=== PATIENT | female | born 1975 | race Caucasian/White ===

== ENCOUNTER → 2016-10-26 | Outpatient (REF) | payer OTHER | LOC: M LAB REF 09:36 | PROVIDERS: ATTEND Physician Assistant | DX: J02.9 Acute pharyngitis, unspecified (principal) ==

== ENCOUNTER → 2016-12-24 | Outpatient (CLI) | payer OTHER ==
--- NOTE | 2016-12-24 19:20 | REP ---
Pelvic ultrasound including transabdominal and endovaginal ultrasound assessment. The bladder is adequately distended. The uterus is anteverted and normal size measuring 9.0 x 4.3 x 5.0 cm. There is a 5.4 cm fibroid in the right lateral posterior myometrium. The fibroid encroaches both the subserosal and submucosal zones. The endometrium is not thickened measuring up to 6 mm. There is an IUD within the endometrial canal. There is a right ovarian 1.6 cm follicle. Including the follicle the right ovary is normal size measuring 2.7 x 1.6 x 3.2 cm. There is no left ovarian follicle or mass. The left ovary is normal size measuring 2.80 1.9 x 1.6 cm. Impression: The uterine fibroid as described. There is an IUD within the endometrial canal. Otherwise, negative pelvic ultrasound. Signed by Dave Phillips MD 12/24/2016 07:12 P
== END ==
LOC: M RAD 17:21
PROVIDERS: ATTEND Nurse Practitioner Family
DX: Z30.431 Encounter for routine checking of intrauterine contraceptive device (principal)

== ENCOUNTER → 2017-02-05 | Day surgery (SDC) | payer OTHER ==
[~2017-02-05] VITALS: Ht 162.6 cm; Wt 74.8 kg
[~2017-02-05] MED LIST: ACETAMINOPHEN 500 MG TAB As Ordered ONE; ACETAMINOPHEN 500 MG TAB PO ONE; ESCI10TA2 PO; LIDOCAINE 1% SDV INJ 30 ML VIAL As Ordered ONE; LIDOCAINE 2% INJ 100 MG/5 ML SDV (FOR ANES.) As Ordered ONE; LR 1,000 ML IV ONE; LR 1,000 ML IV SCH; METF-415 PO; MIDAZOLAM INJ 2 MG/2 ML VIAL (J2250) As Ordered ONE; NS 1,000 ML IV ONE; ONDANSETRON 4MG/2ML VIAL (J2405) IV PRN; PHEN-239 PO; PROPOFOL 200 MG/20 ML VIAL As Ordered ONE; VALT1TAB PO; ZYRT10CA PO; fentaNYL 100 MCG/2 ML INJECTION (J3010) As Ordered ONE; fentaNYL 100 MCG/2 ML INJECTION (J3010) IV PRN
[2017-02-05 10:33] LABS: MEAN CORPUSCULAR HEMOGLOBIN 29.9 pg (27.0-33.0); MEAN CORPUSCULAR HGB CONC 32.6 g/dl (32.0-36.5); MEAN CORPUSCULAR VOLUME 91.8 fl (80.0-96.0); RED CELL DISTRIBUTION WIDTH 13.3 % (11.5-14.5)
[2017-02-05 10:37] LABS: CONTROL LINE UCG INT CTR LINE PRESENT
[2017-02-05 13:15] VITALS: BP 136/82
--- NOTE | 2017-02-05 19:13 | RO ---
DATE OF PROCEDURE: 02/05/2017 PREPROCEDURE DIAGNOSIS: Retained intrauterine device (IUD). POSTPROCEDURE DIAGNOSIS: Retained intrauterine device (IUD). PROCEDURE: Hysteroscopy, dilation and curettage (D and C), removal of intrauterine device. SURGEON: Dr. Rommel Garcia DISASTER RECOVERY CONSULTANT: ANESTHESIA: Local sedation. ESTIMATED BLOOD LOSS: Minimal. FINDINGS: Normal appearing endometrial cavity with normally positioned intrauterine device. DESCRIPTION OF PROCEDURE: The patient was taken to the operating room where intravenous (IV) sedation was given. She was prepped and draped in a sterile fashion in the dorsal lithotomy position. A speculum was placed. The anterior lip of the cervix was grasped with a tenaculum. The cervix was injected circumferentially with 20 mL of 1% lidocaine. The cervix was dilated with tapered dilators, the hysteroscope using normal saline as a distention medium was inserted through the internal os. Visualization of the endometrial cavity revealed the findings noted above. Hysteroscopic grasping instrument was placed through the operative port of the hysteroscope and the string of the IUD was grasped. The hysteroscope with IUD were removed as one. The IUD came out intact. Sharp curettage was performed and endometrial sampling was sent for pathology. All instruments were removed. Sponge and instrument counts were correct. The patient went to the recovery room in stable condition.
== END ==
LOC: M SDC 09:54
PROVIDERS: ATTEND Specialist
DX: T83.89XA Other specified complication of genitourinary prosthetic devices, implants and grafts, initial encounter (principal); Y83.1 Surgical operation with implant of artificial internal device as the cause of abnormal reaction of the patient, or of later complication, without mention of misadventure at the time of the procedure; D25.9 Leiomyoma of uterus, unspecified; F41.9 Anxiety disorder, unspecified; F32.9 Major depressive disorder, single episode, unspecified; E28.2 Polycystic ovarian syndrome; J30.2 Other seasonal allergic rhinitis; R06.83 Snoring; Z79.899 Other long term (current) drug therapy; Z79.84 Long term (current) use of oral hypoglycemic drugs
CPT/HCPCS: 36415; 58301; 58558; 84703; 85027; 88305; J2250; J3010

== ENCOUNTER → 2017-11-18 | Outpatient (REF) | payer OTHER ==
[2017-11-18 13:51] LABS: FOLLICLE STIMULATING HORMONE 6.8 mIU/mL
[2017-11-18 13:52] LABS: LUTEINIZING HORMONE 12.3 mIU/mL
[2017-11-18 13:55] LABS: ALBUMIN/GLOBULIN RATIO 1.18 (1.00-1.93); ALKALINE PHOSPHATASE 56 U/L (45-117); ALT/SGPT 11 U/L (12-78); ANION GAP 5 MEQ/L (8-16); AST/SGOT 12 U/L (7-37); BILIRUBIN,TOTAL 0.3 MG/DL (0.2-1.0); BLOOD UREA NITROGEN 13 MG/DL (7-18); CALCIUM LEVEL 8.8 MG/DL (8.5-10.1); CARBON DIOXIDE LEVEL 30 MEQ/L (21-32); CHLORIDE LEVEL 104 MEQ/L (98-107); FREE T4 1.34 NG/DL (0.76-1.46); GLOMERULAR FILTRATION RATE > 60.0 (>58); GLUCOSE, FASTING 88 MG/DL (70-100); POTASSIUM SERUM 4.6 MEQ/L (3.5-5.1); SODIUM LEVEL 139 MEQ/L (136-145); TOTAL PROTEIN 7.4 GM/DL (6.4-8.2)
[2017-11-18 14:08] LABS: ESTIMATED AVERAGE GLUCOSE 103 MG/DL (60-110); HEMOGLOBIN A1c 5.2 %
[2017-11-20 00:07] LABS: TESTOSTERONE FREE (DIRECT) 1.1 pg/mL (0.0-4.2)
== END ==
LOC: M LABDRWAD 13:22
DX: E28.2 Polycystic ovarian syndrome (principal)

== ENCOUNTER → 2017-12-21 | Outpatient (REF) | payer OTHER | LOC: M LABDRWAD 12:24 | DX: R32 Unspecified urinary incontinence (principal) ==

== ENCOUNTER → 2018-01-19 | Outpatient (REF) | payer OTHER | LOC: M LAB REF 12:22 | DX: C44.519 Basal cell carcinoma of skin of other part of trunk (principal) | CPT/HCPCS: 88305 ==

== ENCOUNTER → 2019-01-11 | Outpatient (REF) | payer OTHER ==
[~2019-01-11] MED LIST changes: -ACETAMINOPHEN 500 MG TAB As Ordered ONE; -ACETAMINOPHEN 500 MG TAB PO ONE; -LIDOCAINE 1% SDV INJ 30 ML VIAL As Ordered ONE; -LIDOCAINE 2% INJ 100 MG/5 ML SDV (FOR ANES.) As Ordered ONE; -LR 1,000 ML IV ONE; -LR 1,000 ML IV SCH; -MIDAZOLAM INJ 2 MG/2 ML VIAL (J2250) As Ordered ONE; -NS 1,000 ML IV ONE; -ONDANSETRON 4MG/2ML VIAL (J2405) IV PRN; -PROPOFOL 200 MG/20 ML VIAL As Ordered ONE; -fentaNYL 100 MCG/2 ML INJECTION (J3010) As Ordered ONE; -fentaNYL 100 MCG/2 ML INJECTION (J3010) IV PRN
[2019-01-11 12:59] LABS: BASO # 0.1 10^3/uL (0.0-0.2); BASO % 0.9 % (0.0-1.0); EOS # 0.2 10^3/uL (0.0-0.50); EOS % 3.1 % (0.0-3.0); HEMATOCRIT 41.9 % (36.0-47.0); HEMOGLOBIN 13.6 g/dl (12.0-15.5); LYMPH # 1.9 10^3/uL (1.5-4.5); MEAN CORPUSCULAR HEMOGLOBIN 30.4 pg (27.0-33.0); MEAN CORPUSCULAR HGB CONC 32.5 g/dl (32.0-36.5); MEAN CORPUSCULAR VOLUME 93.5 fl (80.0-96.0); MONO # 0.5 10^3/uL (0.0-0.8); MONO % 6.7 % (0.0-5.0); NEUTROPHILS % 60.2 % (36.0-66.0); PLATELET COUNT, AUTOMATED 291 10^3/uL (150-450); RED BLOOD COUNT 4.48 10^6/uL (4.00-5.40); WHITE BLOOD COUNT 6.7 10^3/uL (4.0-10.0)
[2019-01-11 13:20] LABS: ALBUMIN 3.5 GM/DL (3.2-5.2); ALT/SGPT 12 U/L (12-78); BILIRUBIN,TOTAL 0.5 MG/DL (0.2-1.0); BLOOD UREA NITROGEN 16 MG/DL (7-18); CALCIUM LEVEL 8.8 MG/DL (8.5-10.1); CARBON DIOXIDE LEVEL 28 MEQ/L (21-32); CHLORIDE LEVEL 105 MEQ/L (98-107); CHOLESTEROL LEVEL 298 MG/DL (<200); CREATININE FOR GFR 0.82 MG/DL (0.55-1.30); FREE T4 1.58 NG/DL (0.76-1.46); GLOMERULAR FILTRATION RATE > 60.0 (>58); GLUCOSE, FASTING 89 MG/DL (70-100); HDL CHOLESTEROL 83 MG/DL (>40); LDL CHOLESTEROL 184 MG/DL (<100); NON-HDL-C 215 MG/DL; POTASSIUM SERUM 4.6 MEQ/L (3.5-5.1); SODIUM LEVEL 140 MEQ/L (136-145); TOTAL PROTEIN 7.6 GM/DL (6.4-8.2); TRIGLYCERIDES LEVEL 157 MG/DL (<150)
== END ==
LOC: M LABDRWAD 12:05
PROVIDERS: ATTEND Family Medicine
DX: Z13.220 Encounter for screening for lipoid disorders (principal); Z13.29 Encounter for screening for other suspected endocrine disorder; Z13.0 Encounter for screening for diseases of the blood and blood-forming organs and certain disorders involving the immune mechanism

== ENCOUNTER → 2020-03-14 | Outpatient (CLI) | payer OTHER ==
--- NOTE | 2020-03-14 13:03 | REPPI ---
REASON: Atraumatic pain. PRIORS: None. FINDINGS: The joint spaces are symmetric and relatively well maintained. There is no evidence of acute fracture or destructive osseous lesion. IMPRESSION: Negative. There is a small plantar calcaneal heel spur. Electronically Signed by Nhan Stein DO 03/14/2020 04:26 P
[2020-03-14 14:25] LABS: ALBUMIN 3.7 GM/DL (3.2-5.2); ALT/SGPT 15 U/L (12-78); BILIRUBIN,TOTAL 0.4 MG/DL (0.2-1.0); BLOOD UREA NITROGEN 8 MG/DL (7-18); CALCIUM LEVEL 8.9 MG/DL (8.5-10.1); CARBON DIOXIDE LEVEL 28 MEQ/L (21-32); CHLORIDE LEVEL 109 MEQ/L (98-107); CREATININE FOR GFR 0.75 MG/DL (0.55-1.30); GLOMERULAR FILTRATION RATE > 60.0 (>58); GLUCOSE, FASTING 87 MG/DL (70-100); POTASSIUM SERUM 4.5 MEQ/L (3.5-5.1); SODIUM LEVEL 143 MEQ/L (136-145); TOTAL PROTEIN 7.2 GM/DL (6.4-8.2)
[2020-03-14 14:40] LABS: HEMOGLOBIN A1c 4.9 %
== END ==
LOC: M PLALAB 09:36
PROVIDERS: ATTEND Family Medicine
DX: E28.2 Polycystic ovarian syndrome (principal); M77.32 Calcaneal spur, left foot

== ENCOUNTER → 2020-12-12 | Outpatient (REF) | payer OTHER ==
[~2020-12-12] MED LIST changes: +ESCI10TA16 PO; -ESCI10TA2 PO
[2020-12-12 12:47] LABS: BASO # 0.1 10^3/uL (0.0-0.2); BASO % 1.2 % (0.0-1.0); EOS # 0.2 10^3/uL (0.0-0.5); EOS % 3.7 % (0.0-3.0); HEMATOCRIT 44.1 % (36.0-47.0); HEMOGLOBIN 14.3 g/dl (12.0-15.5); LYMPH # 2.2 10^3/uL (1.5-5.0); LYMPH % 37.4 % (24.0-44.0); MEAN CORPUSCULAR HEMOGLOBIN 30.6 pg (27.0-33.0); MEAN CORPUSCULAR HGB CONC 32.4 g/dl (32.0-36.5); MEAN CORPUSCULAR VOLUME 94.2 fl (80.0-96.0); MONO # 0.5 10^3/uL (0.0-0.8); NEUTROPHILS % 49.5 % (36.0-66.0); PLATELET COUNT, AUTOMATED 298 10^3/uL (150-450); RED BLOOD COUNT 4.68 10^6/uL (4.00-5.40)
[2020-12-12 13:07] LABS: HEMOGLOBIN A1c 5.1 %
[2020-12-12 13:22] LABS: ALBUMIN 3.9 GM/DL (3.2-5.2); ALT/SGPT 10 U/L (12-78); BILIRUBIN,TOTAL 0.3 MG/DL (0.2-1.0); BLOOD UREA NITROGEN 15 MG/DL (7-18); CALCIUM LEVEL 9.4 MG/DL (8.5-10.1); CARBON DIOXIDE LEVEL 30 MEQ/L (21-32); CHLORIDE LEVEL 108 MEQ/L (98-107); CHOLESTEROL LEVEL 291 MG/DL (<200); CHOLESTEROL RISK RATIO 4.409 (<5); CREATININE FOR GFR 0.64 MG/DL (0.55-1.30); FREE T4 1.34 NG/DL (0.76-1.46); GLOMERULAR FILTRATION RATE > 60.0 (>58); GLUCOSE, FASTING 89 MG/DL (70-100); HDL CHOLESTEROL 66 MG/DL (>40); LDL CHOLESTEROL 201 MG/DL (<100); NON-HDL-C 225 MG/DL; POTASSIUM SERUM 4.7 MEQ/L (3.5-5.1); SODIUM LEVEL 142 MEQ/L (136-145); TOTAL PROTEIN 7.3 GM/DL (6.4-8.2); TRIGLYCERIDES LEVEL 120 MG/DL (<150)
== END ==
LOC: M LABDRWAD 12:22
PROVIDERS: ATTEND Family Medicine
DX: E78.2 Mixed hyperlipidemia (principal); E28.2 Polycystic ovarian syndrome; Z13.29 Encounter for screening for other suspected endocrine disorder; Z13.0 Encounter for screening for diseases of the blood and blood-forming organs and certain disorders involving the immune mechanism

== ENCOUNTER → 2021-03-14 | Outpatient (REF) | payer OTHER ==
[2021-03-14 13:45] LABS: BLOOD UREA NITROGEN 10 MG/DL (7-18); CALCIUM LEVEL 8.9 MG/DL (8.5-10.1); CARBON DIOXIDE LEVEL 29 MEQ/L (21-32); CHLORIDE LEVEL 104 MEQ/L (98-107); CREATININE FOR GFR 0.67 MG/DL (0.55-1.30); GLOMERULAR FILTRATION RATE > 60.0 (>58); GLUCOSE, FASTING 89 MG/DL (70-100); POTASSIUM SERUM 4.2 MEQ/L (3.5-5.1); SODIUM LEVEL 139 MEQ/L (136-145)
== END ==
LOC: M LABDRWAD 12:27
PROVIDERS: ATTEND Ophthalmology
DX: D23.10 Other benign neoplasm of skin of unspecified eyelid, including canthus (principal)

== ENCOUNTER 2021-08-28 15:56 | Emergency (ER) | payer OTHER ==
[~2021-08-28] VITALS: Ht 162.6 cm; Wt 77.1 kg
--- OUTSIDE RECORDS SUMMARY | 2021-08-28 16:06 | CCD | Continuity of Care Document ---
Author Author Valeria LOPEZ SERVICE WORKER Organization Unknown Address [address] [place] [address] [place] [address] Phone [phone] Care Team Providers Care Electrical Maintenance Technician Name Role Phone Rosmery Boggs DO AUTM [employer] AUTM [phone] Problems Description No Information Available Social History Type Date Description Comments Sex Unknown ETOH Use Drinks Alcoholic Beverages Occas ionally Tobacco Use Start: Unknown Patient has never smoked Tobacco Use Start: Unknown The Patient Has Never Vaped Allergies and adverse reactions Description No Known Drug Allergies Medications Active Medications SIG Qnty Indications Ordering Provide r Date Cefdinir 300mg Capsules 1 tab by mouth twice a day for 10 days 20caps J06.9 Garret Barrera JR., M.D. 08/06/2021 Metformin HCL 1000mg Tablets out x 1-2 weeks 3 every day Unknown Wellbutrin SR 150mg Tablets ER 12H R 1 by mouth every am F41.1 Unknown Valtrex 1gm Tablets 1 tab by mouth three times a day for 7 days Unknown 0 Vyvanse Unknown Flonase Allergy Relief Unknown Montelukast Sodium Powder Unknown Albuterol Fha 90mcg/Act Aerosol Unknown Immunizations Description No Information Available Vital Signs Date Vital Result Comment 08/06/2021 4:40pm BP Systolic 134 mmHg BP Diastolic 82 mmHg Heart Rate 87 /min Respiratory Rate 18 /min O2 % BldC Oximetry 98 % Body Temperature 98.6 F Weight 167.00 lb Height 64 inches 5'4" BMI (Body Mass Index) 28.7 kg/m2 Pain Level 5 06/05/2019 2:33pm BP Systolic 130 mmHg BP Diastolic 82 mmHg Heart Rate 106 /min Respiratory Rate 18 /min O2 % BldC Oximetry 95 % Body Temperature 99.0 F Weight 170.00 lb Height 64 inches 5'4" BMI (Body Mass Index) 29.2 kg/m2 Pain Level 6 Results Description No Information Available Procedures Date Code Description Status 08/06/2021 06595 Office/Outpatient Established Lo w MDM 20-29 Min Completed Medical Devices Description No Information Available Encounters Type Date Location Provider Dx Diagnosis Office Visit 08/06/2021 4:30p Main Office Lisset Lopez NP J06. 9 Acute upper respiratory infection, unspecified Z20.828 Contact w and exposure to ot h viral communicable diseases Assessments Date Code Description Provider 08/06/2021 J06.9 Acute upper respiratory infectio n, unspecified Lisset Lopez NP 08/06/2021 Z20.828 Contact with and (carias spected) exposure to other viral communicable diseases Lisset Lopez NP 06/09/2021 Z20.828 Contact with and (carias spected) exposure to other viral communicable diseases ANGELA Art Plan of Treatment No Information Available Functional Status Description No Information Available Mental Status Description No Information Available Referrals Description No Information Available
--- OUTSIDE RECORDS SUMMARY | 2021-08-28 16:06 | CCD ---
Author Author [employer] Organization [employer] Address Unknown Phone Unavailable Care Team Providers Care Stock Or Delivery Clerk Name Role Phone Bobby Griffin Unavailable PROBLEMS Type Condition ICD9-CM Code [id number] Code Onset Dates Condition S tatus W/U Status Risk SNOMED Code Notes Problem Basal cell carcinoma of lower lip C44.01 Active confirmed [id number] ALLERGIES No Known Allergies ENCOUNTERS from 1975 to 2021-08-22 Encounter Location Date Provider Diagnosis [facility] Dermatology [address] [facility] [phone] [place] [address] Aug, Bobby Griffin Basal cell carcinoma of lowe r lip C44.01 ; Diffuse photodamage of skin L57.8 and Cough R05.9 IMMUNIZATIONS No Information SOCIAL HISTORY Tobacco Use: Social History Observation Description Date Details (start date - stop date) Never Smoker Sex Assigned At : Social History Observation Description Sex Assigned At Unknown Tobacco Use: Question Answer Notes Are you a: never smoker REASON FOR REFERRAL No Information VITAL SIGNS Weight 171.6 lbs Aug, Weight-kg 77.84 kg Aug, Height 5'4" in Aug, BMI 29.45 kg/m2 Aug, Blood pressure systolic 124 mm Hg Aug, Blood pressure diastolic 83 mm Hg Aug, MEDICATIONS Medication SIG (Take, Route, Frequency, Duration) Notes Start Da te End Date Status Montelukast Sodium 10 MG 1 tablet Orally Once a day for 30 day(s) Active metFORMIN HCl ER 500 MG 1 tablet with evening meal O rally Once a day for 30 day(s) Active valACYclovir HCl 1 GM 1 tablet Orally Once a day for 10 day(s) Active Fluorouracil 5 % 1 application Externally Twice a day for 6 week s for 42 days Aug, Active PROCEDURES No Information RESULTS No Results REASON FOR VISIT BCC, lower lip, Numerous non-melanoma skin cancers, cough MEDICAL (GENERAL) HISTORY Type Description Date Surgical History SCC right hand Surgical History BCC right nose Surgical History NMSC back Surgical History BCC right lower lid Surgical History Full hysterectomy Surgical History IVF Surgical History Lasik eye surgery 1997 Goals Section No Information Health Concerns No Information MEDICAL EQUIPMENT No Information MENTAL STATUS No Information FUNCTIONAL STATUS No Information ASSESSMENTS Encounter Date Diagnosis Assessment Notes Treatment Notes Treatm ent Clinical Notes Aug, Diffuse photodamage of skin (ICD-10 - L57.8) The patient was identified as being at significant risk for numerous skin cancers due to skin type, photodamage, age of onset of first skin cancer, number of previous skin cancers, or immunosuppression. As a result, a conversation was had outlining preventative treatments to include: 5-fluorouracil: application twice a day for 2 weeks PDT: 2 treatments with 1.5 hour incubation Nicotinamide 500mg 1 by mouth twice a day for a 23% reduction in skin cancer risk. Continued maintenance with sun protection. Aug, Basal cell carcinoma of lower lip (ICD-10 - C44. 01) Very pleasant patient referred for surgical consultation, as above. The pathology report from the referring provider was reviewed and interpreted to ensure this case is appropriate for surgery by dermatologic surgeon, Bobby Griffin MD. This interpretation was discussed with the patient. Referral photograph of the biopsy site was reviewed and verified with patient. Extensive discussion was performed with the patient regarding treatment options to include no treatment, chemotherapy, radiation therapy, and surgery, to include, whether Mohs Micrographic Surgery would be an appropriate treatment modality in this case. Discussed with patient surgical reconstruction options to include secondary intent, primary closure, skin flap, and skin graft. Risk Factors of Concern: Anticoagulant therapy: [ ] Artificial heart valve: [ ] Artificial joint within 2 years: [ ] Given superficial type, patient elected for 6 weeks of 5-FU and a recheck of the area. Agree with this treatment plan. Of note, the patient also has a cough toda y. Reports it is related to post-nasal drip. Regardless of treatment plan, we would not operate today on the lower lip during the COVID-19 pandemic due to risk. Aug, Cough (ICD-10 - R05.9) As above. PLAN OF TREATMENT Medication Medication Name Sig Start Date Stop Date Fluorouracil 5 % 1 application Externally Twice a day for 6 weeks for 42 days Aug, Treatment Notes Assessment Notes Clinical Notes Diffuse photodamage of skin The patient was identified as being at significant risk for numerous skin cancers due to skin type, photodamage, age of onset of first skin cancer, number of previous skin cancers, or immunosuppression. As a result, a conversation was had outlining preventative treatments to include:5- fluorouracil: application twice a day for 2 weeksPDT: 2 treatments with 1.5 hour incubationNicotinamide 500mg 1 by mouth twice a day for a 23% reduction in skin cancer risk.Continued maintenance with sun protection. Basal cell carcinoma of lower lip Very p leasant patient referred for surgical consultation, as above. The pathology report from the referring provider was reviewed and interpreted to ensure this case is appropriate for surgery by oseas matologic surgeon, Bobby Griffin MD. This interpretation was discussed with the patient. Referral photograph of the biopsy site was reviewed and verified with patient. Extensive discussion was performed with the patient regarding treatment options to include no treatment, chemotherapy, radiation therapy, and surgery, to include, whether Mohs Micrographic Surgery would be an appropriate treatment modality in this case. Discussed with patient surgical reconstruction options to include secondary intent, primary closure, skin flap, and skin graft.Risk Factors of Concern:Anticoagulant therapy: [ ]Artificial heart valve: [ ]Artificial joint within 2 years: [ ]Given superficial type, patient elected for 6 weeks of 5-FU and a recheck of the area. Agree with this treatment plan. Of note, the patient also has a cough today. Reports it is related to post-nasal drip. Regardless of treatment plan, we would not operate today on the lower lip during the COVID-19 pandemic due to risk. Cough As above. Next Appt Details follow up and then scheduled surgery 2/ if not resolved Reason: Provider Name:Bobby Griffin, 10-16 01:00:00 PM, [address] [place] [address], , [place], [address], Provider Name:Bobby Griffin 10-25 01:00:00 PM, [address] [facility], , [place], [address], Insurance Providers Payer Name Payer Address Payer Phone Insured Name Patient Relati onship to Insured Coverage Start Date Coverage End Date [facility] [id number] [facility] [id number] ED JENNIFER JOHNSON [id number]
--- OUTSIDE RECORDS SUMMARY | 2021-08-28 16:06 | CCD | Continuity of Care Document ---
Author Author Valeria PORTILLO SUPERVISOR BONDING-C Organization Unknown Address [address] [place] [address] Phone [phone] Care Team Providers Care Clinical Immunologist Name Role Phone Rosmery Boggs DO AUTM [phone] Problems Description No Information Available Social History Type Date Description Comments Sex Unknown ETOH Use Social Drinker Tobacco Use Start: Unknown Patient has never smoked Sun Exposure moderate amount of sun exposure Sun Exposure Tanning bed - Has used in past. No longer using. Sun Exposure Has experienced blistering from sunburns Sun Exposure Uses 15-30 SPF Allergies and adverse reactions Description No Known Drug Allergies Medications Active Medications SIG Qnty Indications Ordering Provide r Date Ciclopirox 0.77% Gel apply to feet twice a day x 2 weeks 45gm B35.3 Li Membreno, Franco.N.P. 2020 Metformin HCL 1000mg 1 by mouth every day Unknown Valtrex 500mg Tablets take 1 by mouth daily. Unknown Medications Administered in Office Medication SIG Qnty Indications Ordering Provider Date Injection Intralesional Up To 7 Injection BELINDA Davies 07/15/2018 Immunizations Description No Information Available Vital Signs Date Vital Result Comment 08/20/2021 12:57pm BP Systolic 141 mmHg BP Diastolic 95 mmHg Heart Rate 82 /min Weight 165.00 lb 08/05/2021 3:01pm BP Systolic 132 mmHg BP Diastolic 87 mmHg Heart Rate 86 /min Weight 168.00 lb Results Test Acquired Date Facility Test Result H/L Range Note [facility] Pathology 04/03/2021 [facility] Icd9 Code ICD9 Code: C44.0 <SEE NOTE> 1, 2 PDFReport SEE IMAGE [address] Griffin letter a waiting signature LW 04/13/21 photo emailed, letter sent, awaiting appt LW 04/17/21 appt 04/17, pt is aware LW 2 ICD9 Code: C44.01 Protocol: shave Clinical Text: AK VS. BCC Final Diagnosis: BASAL CELL CARCINOMA, SUPERFICIAL MULTIFOCAL TYPE, EXTENDING TO ONE SIDE MARGIN. Gross Text: The specimen grossly was oval shaped, measuring 5 x 4 mm. on the surface and 1 mm. deep. It was divided into 2 sections on the long axis. All of the tissue was submitted for processing. Microscopic Description: Islands of basaloid cells are attached to the epidermal undersurface. CPT: 96505*1 Procedures Date Code Description Status 08/20/2021 49170 Office/Outpatient Established Lo w MDM 20-29 Min Completed 08/05/2021 95389 Office/Outpatient Established Mo d MDM 30-39 Min Completed 04/03/2021 62087 Office/Outpatient Established Mo d MDM 30-39 Min Completed 04/03/2021 85116 Shave Biopsy Of Skin, Single Les ion Completed Medical Devices Description No Information Available Encounters Type Date Location Provider Dx Diagnosis Office Visit 08/20/2021 12:45p Main Office DENNY Matias-Joel L82.1 Other seborrheic keratosis R23.4 Changes in skin texture Office Visit 08/05/2021 3:00p Main Office DENNY Matias-Joel C44.319 Basal cell carcinoma of skin of other parts of face D22.30 Melanocytic nevi of unspecif ied part of face D22.5 Melanocytic nevi of trunk D22.71 Melanocytic nevi of right lo wer limb, including hip D22.72 Melanocytic nevi of left low er limb, including hip L81.4 Other melanin hyperpigmentat ion L82.1 Other seborrheic keratosis L70.0 Acne vulgaris R23.4 Changes in skin texture L91.0 Hypertrophic scar Z85.828 Personal history of other ma lignant neoplasm of skin Z08 Encntr for follow-up exam af ter trtmt for malignant neoplasm Office Visit 04/03/2021 10:15a Main Office Li Membreno, F.N.P. D48.5 Neoplasm of uncertain behavior of skin B35.3 Tinea pedis B35.1 Tinea unguium Assessments Date Code Description Provider 08/20/2021 L82.1 Other seborrheic keratosis Nikki samuelrachel Membreno, F.N.P. 08/20/2021 L82.1 Other seborrheic keratosis Emerald anejulio Portillo, [employer] 08/20/2021 R23.4 Changes in skin texture Leo Membreno, F.N.P. 08/20/2021 R23.4 Changes in skin texture Jyotie y Brittanie Portillo, [employer] 08/05/2021 C44.319 Basal cell carcinoma of skin of other parts of face Li Membreno, F.N.P. 08/05/2021 C44.319 Basal cell carcinoma of skin of other parts of face Melanie Portillo, [employer] 08/05/2021 D22.30 Melanocytic nevi of unspecified part of face Melanie Portillo, [employer] 08/05/2021 D22.5 Melanocytic nevi of trunk Nilda Venegas'amalia, F.N.P. 08/05/2021 D22.5 Melanocytic nevi of trunk Heather karynjulio Portillo, [employer] 08/05/2021 D22.71 Melanocytic nevi of right lower limb, including hip Melanie Portillo, [employer] 08/05/2021 D22.72 Melanocytic nevi of left lower l imb, including hip Melanie Portillo, [employer] 08/05/2021 L81.4 Other melanin hyperpigmentation Melanie Portillo, [employer] 08/05/2021 L82.1 Other seborrheic keratosis Emerald anejulio Portillo, [employer] 08/05/2021 L70.[address]ne [address] Melanie [address], [employer] 08/05/2021 R23.4 Changes in skin texture Zena Portillo, [employer] 08/05/2021 L91.0 Hypertrophic scar Melanie garcia [employer] 08/05/2021 Z85.828 Personal history of other malign ant neoplasm of skin Reshma RhoadesN.PMaxx 08/05/2021 Z85.828 Personal history of other malign ant neoplasm of skin BELINDA Matias 08/05/2021 Z08 Encounter for follow -up examination after completed treatment for malignant neoplasm Reshma RhoadesN.PMaxx 08/05/2021 Z08 Encounter for follow-up examinat ion after completed treatmen BELINDA Matias 04/03/2021 D48.5 Neoplasm of uncertain behavior o f skin Li Membreno F.N.P. 04/03/2021 B35.3 Tinea pedis Li espana, F.N.P. 04/03/2021 B35.1 Tinea unguium Li espana, F.N.P. 04/03/2021 C44.01 Basal cell carcinoma of skin of lip BELINDA Matias Plan of Treatment Future Appointment(s):* 02/10/2022 2:45 pm - BELINDA Matias at Main Office 08/20/2021 - BELINDA Matias* L82.1 Other seborrheic keratosis* Comments:* Reassurance. * R23.4 Changes in skin texture* Comments:* Resolved. Call with problems. * Follow up:* Has appointment Functional Status Description No Information Available Mental Status Description No Information Available Referrals Description No Information Available
--- OUTSIDE RECORDS SUMMARY | 2021-08-28 16:06 | CCD | Continuity of Care Document ---
Author Author Valeria PORTILLO CHEMICAL ENGINEER-C Organization Unknown Address [address] [place] [address] Phone [phone] Care Team Providers Care Teller Name Role Phone Rosmery Boggs DO AUTM Problems Description No Information Available Social History [...] x 2 weeks 45gm B35.3 Li Membreno, F.N.P. 2020 Metformin HCL 1000mg 1 by mouth [...] are attached to the epidermal undersurface. CPT: 42254*1 Procedures Date Code Description Status 08/05/2021 83971 Office/Outpatient Established Mo d MDM 30-39 Min Completed 04/03/2021 04945 Office/Outpatient Established Mo d MDM 30-39 Min Completed 04/03/2021 14453 Shave Biopsy Of Skin, Single Les ion Completed Medical Devices Description No Information Available Encounters Type Date Location Provider Dx Diagnosis Office Visit 08/05/2021 3:00p Main Office DENNY Matias-C C44.319 Basal cell carcinoma of skin of [...] skin Z08 Encntr for follow-up exam af kristina trtmt for malignant neoplasm Office Visit 04/03/2021 10:15a Main Office Li Membreno, Franco.N.Herbert D48.5 Neoplasm of uncertain behavior of skin B35.3 Tinea pedis B35.1 Tinea unguium Assessments Date Code Description Provider 08/20/2021 L82.1 Other seborrheic keratosis DENNY Cedeño-C 08/20/2021 R23.4 Changes in skin texture [facility] 08/05/2021 C44.319 Basal cell carcinoma of skin of other parts of face Li Membreno, F.N.P. 08/05/2021 C44.319 Basal cell carcinoma of skin of other parts of face Melanie R Bandar, [facility] 08/05/2021 D22.30 Melanocytic nevi of unspecified part of face Melanie R Bandar [facility] 08/05/2021 D22.5 Melanocytic nevi of trunk Nilda Membreno, F.N.P. 08/05/2021 D22.5 Melanocytic nevi of trunk Heather boss Brittanie Portillo [facility] 08/05/2021 D22.71 Melanocytic nevi of right lower limb, including hip Melanienancy Portillo, [facility] 08/05/2021 D22.72 Melanocytic nevi of left lower l imb, including hip Melanie Brittanie Kohlerjose, [facility] 08/05/2021 L81.4 Other melanin hyperpigmentation Melanie R Bandar [facility] 08/05/2021 L82.1 Other seborrheic keratosis Emerald katerine Brittanie Portillo [facility] 08/05/2021 L70.0 Acne vulgaris [address]anie [address], [facility] 08/05/2021 R23.4 Changes in skin texture Jyotirachel kim Brittanie Portillo [facility] 08/05/2021 L91.0 Hypertrophic scar Melanie R Jose F garcia [facility] 08/05/2021 Z85.828 Personal history of other malign ant neoplasm of skin Li Membreno, F.N.P. 08/05/2021 Z85.828 Personal history of other malign ant neoplasm of skin Melanienancy Portillo [facility] 08/05/2021 Z08 Encounter for follow -up examination after completed treatment for malignant neoplasm Li Membreno, F.N.P. 08/05/2021 Z08 Encounter for follow-up examinat ion after completed treatmen BELINDA Matias 04/03/2021 D48.5 Neoplasm of uncertain behavior o f skin Li Venegas'amalia, F.N.P. 04/03/2021 B35.3 Tinea pedis Li Venegas'blair n, F.N.P. 04/03/2021 B35.1 Tinea unguium Li Venegas'blair n, F.N.P. 04/03/2021 C44.01 Basal cell carcinoma of skin of lip BELINDA Matias Plan of Treatment Future Appointment(s):* 02/10/2022 2:45 pm - BELINDA Matias at Main Office 08/20/2021 - BELINDA Matias* L82.1 Other seborrheic keratosis* Comments:* Reassurance. * R23.4 Changes in skin texture* Comments:* Resolved. Continue to monitor.Call with problems. * Follow up:* Has appointment Functional Status Description No Information Available Mental Status Description No Information Available Referrals Description No Information Available
--- OUTSIDE RECORDS SUMMARY | 2021-08-28 16:07 | CCD ---
Author Author Gavin Moy MD [facility] Organization Gavin Moy MD [facility] Address [address] [place] [address] Phone Care Team Providers Care Toll Bridge Attendant Name Role Phone Farzaneh ESPAÑA, FEMI, Gavin Lei Unavailable [phone] Lele Ramos OD Unavailable [phone] Bruce SAHU MD, Garret Gamez Unavailable [phone] Rosmery Boggs D.O. PP [phone] Reason for Referral No Reason for Referral Recorded Problems Includes: Active, inactive, and resolved Problems All Visits Onset Date - Time Resolved Date - Time Provider Co ndition Status Blepharitis Squamous 03/08/2020 - 12:00AM Gavin Ahuja MD, FACS Active Blepharitis Squamous 03/08/2020 - 12:00AM Gavin Auhja MD, FACS Inactive Blepharitis Squamous 03/08/2020 - 12:00AM Gavin Ahuja MD, FACS Inactive Blepharitis Squamous 03/08/2020 - 12:00AM Gavin Ahuja MD, FACS Inactive Dry Eye Syndrome 03/08/2020 - 12:00AM Gavin tracey MD, FACS Active Trichiasis of Eyelid 03/08/2020 - 12:00AM Gavin Ahuja MD, FACS Active Blepharitis Ulcerative 03/08/2020 - 12:00AM Gavin Jin MD, FACS Inactive Blepharitis Ulcerative 03/08/2020 - 9:29AM Gavin Winters MD, FACS Active Vitreous Disorders Degeneration 03/08/2020 - 12:00AM Gavin Moy MD, FACS Active Plan of Treatment Referrals To Diagnosis Referral to Dr. Lorne Moy MD, FACS Ulcerat nima blepharitis right lower eyelid Assessments Includes: Assessments for all patient encounters Findings Encounter Date Dry eye syndrome 10 Month Follow-Up with Gavin tracey MD, FACS 02/05/2021 Squamous blepharitis right upper eyelid , left upper eyelid and left lower eyelid 10 Month Follow-Up with Gavin Moy MD, FACS 0 02/05/2021 Ulcerative blepharitis 10 Month Follow-Up with Gavin Montes MD, FACS 02/05/2021 Vitreous degeneration 10 Month Follow-Up with Gavin Abarca MD, FACS 02/05/2021 Trichiasis of the eyelid 3 - 4 Week Follow-Up with Gavin Moy MD, FACS 03/30/2020 Ulcerative blepharitis 3 - 4 Week Follow-Up with Gavin Winters MD, FACS 03/30/2020 Dry eye syndrome TRIAGE NEW PATIENT with Gavin tracey MD, FACS 03/08/2020 Squamous blepharitis right upper eyelid , left upper eyelid and left lower eyelid TRIAGE NEW PATIENT with Gavin Moy MD, FACS 0 03/08/2020 Trichiasis of the eyelid TRIAGE NEW PATIENT with Gavin Winters MD, FACS 03/08/2020 Ulcerative blepharitis TRIAGE NEW PATIENT with Gavin Montes MD, FACS 03/08/2020 Vitreous degeneration TRIAGE NEW PATIENT with Gavin Abarca MD, FACS 03/08/2020 Instructions Instructions not supported for this document typeNo Instructions Recorded Medical Equipment - Implanted Devices Includes: Current and historical DevicesNo Medical Equipment Recorded Medications Includes: Current and historical Medications Current Medications (continue as prescribed) Vyvanse 10 MG Oral Capsule 02/05/2021 Provider: Diagnosis: Montelukast Sodium 10 MG Oral Tablet 02/05/2021 Pro vider: Diagnosis: Amqvpvhd-Jegpusimy-Eyfhmlri 3.5-52443-2.1 Ophthalmic Ointmen t 01/04/2021 Provider: Gavin Moy MD, FACS Diagnosis: Ulcerative blepharit is right lower eyelid apply thin bead to both lower eyelids at bedtime as needed Metformin 1500 mg Oral Tablet 03/08/2020 Provider: Diagnosis: Valtrex 500 MG Oral Tablet 03/08/2020 Provider: Diagnosis: Ehihodgj-Nfescewlf-Dyujjafd 0.1% Ophthalmic Suspension 03/08 Provider: Diagnosis: Past Medications on file TobraDex 0.3-0.1% Ophthalmic Ointment 12/31/2020 - 1 Provider: Gavin Moy MD, FACS Diagnosis: Trichiasis without e ntropian right lower eyelid apply thin bead to right lower eyelid at bedtime for 3 weeks TobraDex 0.3-0.1% Ophthalmic Ointment 03/08/2020 - 1 Provider: Gavin Moy MD, FACS Diagnosis: Trichiasis without e ntropian right lower eyelid apply thin bead to right lower eyelid at bedtime for 3 weeks Medications Administered Includes: Administered Medications in patient's chartNo Administered Medications Recorded Vital Signs Includes: Vital Signs from 07/22/2020 through 07/22/2021No Vital Signs Recorded For Specified Dates Results Includes: Results from 07/22/2020 through 07/22/2021No Results Recorded For Specified Dates History of Present Illness History of Present Illness not supported for this document typeNo History of Present Illness Recorded Social History Description Last Updated Tobacco non-user 02/05/2021 A social drinker 03/30/2020 No smoking status : Never smoked/ Recode: 4 03/30/2020 No tobacco use 03/30/2020 Not using drugs 03/30/2020 Procedures and Surgical History Includes: Procedures from 07/22/2020 through 07/22/2021 Procedures Code Diagnosis Performing Provider Service Location Service Date Intermediate Eye Exam Established Patient [address] Ulcerative blepharitis right lower eyelid, Squamous blepharitis right upper eyelid, Dry eye syndrome of bilateral lacrimal glands, Vitreous degeneration, bilateral Gavin Moy MD, FACS Gavin Moy MD [facility] 02/05/2021 Surgical History Last Updated Surgical / procedural history Hysterect tori 2018, Skin Cancer removal (BCC/Squamous) - 2014 (hand, nose, back), IVF 201403/30/2020 History of LASIK surgery of both corneas 1997 020 Medical History Includes: Medical History in patient's chart Description Last Updated No recent change in medical history 03/30/2020 Reported medical history PCOS 03/30/2020 Family History Includes: Family History in patient's chart Description Last Updated Maternal history of arthritis 03/30/2020 Maternal history of cataract 03/30/2020 Paternal history of family history of cancer 0 Paternal history of hypertension 03/30/2020 Review of Systems Review of Systems not supported for this document typeNo Review of Systems Recorded Mental Status Mental Status not supported for this document type Description Oriented to time, place, and person Anxiety Functional Status Functional Status not supported for this document typeNo Functional Status Recorded Physical Exam Physical Exam not supported for this document typeNo Physical Exam Recorded Immunizations Includes: Immunizations in patient's chartNo Immunizations Recorded Allergies Includes: Active, inactive, and resolved AllergiesNo Known Allergies Encounters Includes: Encounters from 07/22/2020 through 07/22/2021 Encounter Provider Location Date Check-In Time Check-Out Time D iagnosis 10 Month Follow-Up Gavin Moy MD, FACS Gavin Moy MD [facility] 02/05/2021 9:41AM 10:41AM Blepharitis Ulcerati ve, Blepharitis Squamous, Dry Eye Syndrome, Vitreous Disorders Degeneration Rx Refills/Changes Gavin Moy MD, FACS 12/31/2020 03/30/2020 2:33PM 03/30/2020 11:59PM Insurance Includes: Active Insurance Policies Plan Name Member ID Group # Subscriber Relationship Effective Da malissa 1 - [facility] Health Plan EPO - Pay [employer] [id number] Valeria Ross r Self Advance Directives Includes: Current Advance DirectivesNo Advance Directives Recorded Health Concerns Includes: Active Health ConcernsNo Active Health Concerns Recorded Goals Includes: Active GoalsNo Active Goals Recorded Interventions Includes: Interventions for active GoalsNo Interventions Recorded Evaluations & Outcomes Includes: Evaluations & Outcomes for active GoalsNo Outcomes Recorded
--- OUTSIDE RECORDS SUMMARY | 2021-08-28 16:07 | CCD | Continuity of Care Document ---
Author Author Valeria RODRIGUEZ PA Organization Unknown Address [address] [place] [address] [address] [place] [address] Phone [phone] Care Team Providers Care Headlight Adjuster Name Role Phone Rosmery Boggs D.O. AUTM [phone] Bartolo Alston D.P.M. AUTM [phone] Problems Active Problems Provider Date Genital herpes simplex Rosmery Boggs D.O. Onset: 02/2018 Polycystic ovaries Rosmery Boggs D.O. Onset: 2017 Cystic acne Rosmery Boggs D.O. Onset: 2017 Basal cell carcinoma of upper back Juan Pablo Mistry Onset: 12/23/2017 Hormone replacement therapy Rosmery Boggs D.O. Onset : 03/13/2020 Social History Type Date Description Comments Sex Unknown ETOH Use Currently consumes alcohol 5-8 p er week Tobacco Use Start: Unknown Patient has never smoked Recreational Drug Use Denies Drug Use Smoking Status Reviewed: 06/04/21 Patient has never smoked Exercise Type/Frequency Cardio 2-3 time s per week Sun Exposure Uses sunscreen Seat Belt/Car Seat Always uses seat belt Allergies, Adverse Reactions, Alerts Description No Known Drug Allergies Medications Active Medications SIG Qnty Indications Ordering Provide r Date Amoxicillin/Clavulanate Potassium 875-125mg Tablets 1 tab by mouth twice a day until gone 20tabs J01.00 Rosmery Jaramillo D.O. 06/25/2021 Fluticasone Propionate 50mcg/Act Suspension 1 spray each nostril twice daily as needed for congestion. 16gm Mary Carmen MistryOMaxx 06/13/2021 Vyvanse 30mg Capsules 1 tab by mouth daily, istop #: [id number] 30caps F90.0 Mary Carmen MistryO. 05/06/2021 Montelukast Sodium 10mg Tablets 1 by mouth every day 30tabs R05 Mary Carmen MistryO. 01/24 Ventolin HFA 108(90Base) mcg/Act A erosol 2 puffs every 4 hours shortness of breath or wheezing 8gm R06.00 Mary Carmen PaganOMaxx 12/16/[address] 1 by mouth every day 90caps R10.13 Jyoti Mistry.O. 02/15 Spironolactone 25mg Tablets take one tablet by mouth every day as needed 90tabs L70.8 Mary Carmen ArmijoOMaxx 03/08/2018 Metformin HCL ER 500mg Tablets ER 24HR Take Two Tablets By Mouth Twice A Day With Meals 360tabs Jyoti Mistry.OMaxx 10/28/2017 Valacyclovir HCL 1gm Tablets take one tablet by mouth every day 90tabs Jyoti Mistry.O. Bupropion Hydrochloride ER (SR) 150mg Tablets ER 12HR Take One Tablet By Mouth Every Day 90tabs Mary Carmen MistryO. CDB Oil daily Unknown Probiotic 8-020Skeyzve-pz Capsules Unknown History Medications Vyvanse 40mg Capsules 1 tab by mouth daily, istop #: [id number] 30caps F90.0 Mary Carmen MistryO. 01/24/2021 - 05/06/2021 Immunizations Description No Information Available Vital Signs Date Vital Result Comment 06/25/2021 3:51pm BP Systolic 126 mmHg BP Diastolic 74 mmHg Height 63.5 inches 5'3.50" Heart Rate 70 /min Respiratory Rate 18 /min Body Temperature 98.2 F O2 % BldC Oximetry 99 % [place] Body Weight 115 lb 06/04/2021 8:08am BP Systolic 132 mmHg BP Diastolic 72 mmHg Height 63.5 inches 5'3.50" Weight 175.00 lb BMI (Body Mass Index) 30.5 kg/m2 Heart Rate 96 /min Respiratory Rate 18 /min Body Temperature 98.2 F O2 % BldC Oximetry 97 % [place] Body Weight 115 lb Results Description No Information Available Procedures Date Code Description Status 06/25/2021 05114 Office/Outpatient Established Lo w MDM 20-29 Min Completed 06/04/2021 57679 Office/Outpatient Established Mo d MDM 30-39 Min Completed 01/24/2021 51398 Office/Outpatient Established Mo d MDM 30-39 Min Completed Medical Devices Description No Information Available Encounters Type Date Location Provider Dx Diagnosis Office Visit 06/25/2021 3:40p [facility] ANGELA Luong J01.00 Acute maxillary sinusitis, u nspecified Office Visit 06/04/2021 8:00a [facility] ANGELA Luong 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, predom inattentive type E28.2 Polycystic ovarian syndrome E78.2 Mixed hyperlipidemia F41.1 Generalized anxiety disorder Office Visit 01/24/2021 3:00p [facility] ANGELA Luong 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, predom inattentive type R05 Cough Assessments Date Code Description Provider 06/25/2021 J01.00 Acute maxillary sinusitis, unspe cified ANGELA Luong 06/04/2021 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 at [facility] Functional Status Description No Information Available Mental Status Description No Information Available Referrals Description No Information Available
--- OUTSIDE RECORDS SUMMARY | 2021-08-28 16:07 | CCD | Continuity of Care Document ---
Author Author Valeria RODRIGUEZ PA Organization Unknown Address [address] [place] [address] [address] [place] [address] Phone [phone] Care Team Providers Care Aircraft Fueler Name Role Phone Rosmery Boggs D.O. AUTM [phone] Bartolo Alston D.P.M. AUTM [phone] Problems Active Problems Provider Date Genital herpes simplex Rosmery Boggs D.O. Onset: 02/2018 Polycystic ovaries Rosmery Boggs D.O. Onset: 2017 Cystic acne Rosmery Boggs D.O. Onset: 2017 Basal cell carcinoma of upper back Juan Pablo Mitsry Onset: 12/23/2017 Hormone replacement therapy Rosmery Boggs [...] 1 tab by mouth daily, istop #: [id number] 30caps F90.0 Mary Carmen MistryO. 05/06/2021 Montelukast [...] Carmen MistryO. CDB Oil daily Unknown Probiotic 1-031Ibllyof-qb Capsules Unknown History Medications Vyvanse 40mg Capsules 1 tab by mouth daily, istop #: [id number] 30caps F90.0 Mary Carmen MistryO. 01/24/2021 - 05/06/2021 Immunizations Description No Information Available Vital Signs Date Vital Result Comment 06/25/2021 3:51pm BP Systolic 126 mmHg BP Diastolic 74 mmHg Height 63.5 inches 5'3.50" Heart Rate 70 /min Respiratory Rate 18 /min Body Temperature 98.2 F O2 % BldC Oximetry 99 % [place] Body Weight 115 lb 06/04/2021 8:08am BP Systolic 132 mmHg BP Diastolic 72 mmHg Height 63.5 inches 5'3.50" Weight 175.00 lb BMI (Body Mass Index) 30.5 kg/m2 Heart Rate 96 /min Respiratory Rate 18 /min Body Temperature 98.2 F O2 % BldC Oximetry 97 % [place] Body Weight 115 lb Results Description No Information Available Procedures Date Code Description Status 06/25/2021 57024 Office/Outpatient Established Lo w MDM 20-29 Min Completed 06/04/2021 61935 Office/Outpatient Established Mo d MDM 30-39 Min Completed 01/24/2021 12775 Office/Outpatient Established Mo d MDM 30-39 Min Completed Medical Devices Description No Information Available Encounters Type Date Location Provider Dx Diagnosis Office Visit 06/25/2021 3:40p [facility] ANGELA Luong J01.00 Acute maxillary sinusitis, u nspecified Office Visit 06/04/2021 8:00a [facility] ANGELA Luong 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 at [facility] Functional Status Description No Information Available Mental Status Description No Information Available Referrals Description No Information Available
--- OUTSIDE RECORDS SUMMARY | 2021-08-28 16:07 | CCD | Continuity of Care Document ---
Author Author Valeria LOPEZ [employer] Organization Unknown Address [address] [place] [address] [place] [address] Phone [phone] Care Team Providers Care Headlight Assembler Name Role Phone Rosmery Boggs DO AUTM [employer] AUTM [phone] Problems Description No Information Available Social History [...] 6 Results Description No Information Available Procedures Description No Information Available Medical Devices Description No Information Available Encounters Description No Information Available Assessments Date Code Description Provider 08/06/2021 J06.9 Acute upper respiratory infectio n, unspecified Lisset Lopez NP 08/06/2021 Z20.828 Contact with and (carias spected) exposure to other viral communicable diseases Lisset Lopez NP 06/09/2021 Z20.828 Contact with and (carias spected) exposure to other viral communicable diseases ANGELA Art Plan of Treatment 08/06/2021 - Lisset Lopez NP* J06.9 Acute upper respiratory infection, unspecified* New Medication:* Cefdinir 300 mg - 1 tab by mouth twice a day for 10 days * Comments:* likely viral etiology delayed abx, berry picker script if sx persist/worsen 3-5 daysencouraged to trial OTC medicationsrest/time/fluidsf/u PRN or with PCPpatient v/u & agrees to plan * Z20.828 Contact with and (suspected) exposure to other viral communicable diseases* Comments:* tested for COVID-19 today via [facility], results were reported as negative Functional Status Description No Information Available Mental Status Description No Information Available Referrals Description No Information Available
--- OUTSIDE RECORDS SUMMARY | 2021-08-28 16:07 | CCD ---
Author Author [facility] Organization [facility] Address Unknown Phone Unavailable Care Team Providers Care Manager Technical Services Name Role Phone Castro, Lisset AIRPORT SKILLED MAINTENANCE SUPERVISOR Unavailable Unavailable Castro, Lisset AIRPORT SKILLED MAINTENANCE SUPERVISOR Unavailable Unavailable Castro, Lisset AIRPORT SKILLED MAINTENANCE SUPERVISOR Unavailable Unavailable Castro, Lisset AIRPORT SKILLED MAINTENANCE SUPERVISOR Unavailable Unavailable Castro, Lisset AIRPORT SKILLED MAINTENANCE SUPERVISOR Unavailable Unavailable Castro, Lisset AIRPORT SKILLED MAINTENANCE SUPERVISOR Unavailable Unavailable Castro, Lisset AIRPORT SKILLED MAINTENANCE SUPERVISOR Unavailable Unavailable Castro, Lisset AIRPORT SKILLED MAINTENANCE SUPERVISOR Unavailable Unavailable Castro, Lisset AIRPORT SKILLED MAINTENANCE SUPERVISOR Unavailable Unavailable Castro, Lisset AIRPORT SKILLED MAINTENANCE SUPERVISOR Unavailable Unavailable Castro, Lisset AIRPORT SKILLED MAINTENANCE SUPERVISOR Unavailable Unavailable Castro, Lisset AIRPORT SKILLED MAINTENANCE SUPERVISOR Unavailable Unavailable Castro, Lisset AIRPORT SKILLED MAINTENANCE SUPERVISOR Unavailable Unavailable Norman, D Blayne PA Unavailable Unavailable Norman, D Blayne PA Unavailable Unavailable Norman, D Blayne PA Unavailable Unavailable Norman, D Blayne PA Unavailable Unavailable Norman, D Blayne PA Unavailable Unavailable Norman, D Blayne PA Unavailable Unavailable Norman, D Blayne PA Unavailable Unavailable Norman, D Blayne PA Unavailable Unavailable Norman, D Blayne PA Unavailable Unavailable Norman, D Blayne PA Unavailable Unavailable Norman, D Blayne PA Unavailable Unavailable Norman, D Blayne PA Unavailable Unavailable Norman, D Blayne PA Unavailable Unavailable Norman, D Blayne PA Unavailable Unavailable Norman, D Blayne PA Unavailable Unavailable Norman, D Blayne PA Unavailable Unavailable Norman, D Blayne PA Unavailable Unavailable Norman, D Blayne PA Unavailable Unavailable Norman, D Blayne PA Unavailable Unavailable Norman, D Blayne PA Unavailable Unavailable Norman, D Blayne PA Unavailable Unavailable Norman, D Blayne PA Unavailable Unavailable Norman, D Blayne PA Unavailable Unavailable Norman, D Blayne PA Unavailable Unavailable Norman, D Blayne PA Unavailable Unavailable Norman, D Blayne PA Unavailable Unavailable Norman, D Blayne PA Unavailable Unavailable Norman, D Blayne PA Unavailable Unavailable Norman, D Blayne PA Unavailable Unavailable Norman, D Blayne PA Unavailable Unavailable Norman, D Blayne PA Unavailable Unavailable Norman, D Blayne PA Unavailable Unavailable Norman, D Blayne PA Unavailable Unavailable Norman, D Blayne PA Unavailable Unavailable Norman, D Blayne PA Unavailable Unavailable Norman, D Blayne PA Unavailable Unavailable Norman, D Blayne PA Unavailable Unavailable Norman, D Blayne PA Unavailable Unavailable Norman, D Blayne PA Unavailable Unavailable Norman, D Blayne PA Unavailable Unavailable Norman, D Blayne PA Unavailable Unavailable Norman, D Blayne PA Unavailable Unavailable Norman, D Blayne PA Unavailable Unavailable Norman, D Blayne PA Unavailable Unavailable Norman, D Blayne PA Unavailable Unavailable Norman, D Blayne PA Unavailable Unavailable Norman, D Blayne PA Unavailable Unavailable Norman, D Blayne PA Unavailable Unavailable Norman, D Blayne PA Unavailable Unavailable Norman, D Blayne PA Unavailable Unavailable Norman, D Blayne PA Unavailable Unavailable Norman, D Blayne PA Unavailable Unavailable Norman, D Blayne PA Unavailable Unavailable Norman, D Blayne PA Unavailable Unavailable Norman, D Blayne PA Unavailable Unavailable KIMBERLY-ANJU, ROSMERY DO Unavailable Unavailable KIMBERLY-ANJU, ROSMERY DO Unavailable Unavailable KIMBERLY-ANJU, ROSMERY DO Unavailable Unavailable KIMBERLY-ANJU, ROSMERY DO Unavailable Unavailable KIMBERLY-ANJU, ROSMERY DO Unavailable Unavailable KIMBERLY-ANJU, ROSMERY DO Unavailable Unavailable KIMBERLY-ANJU, ROSMERY DO Unavailable Unavailable KIMBERLY-ANJU, ROSMERY DO Unavailable Unavailable KIMBERLY-ANJU, ROSMERY DO Unavailable Unavailable KIMBERLY-ANJU, ROSMERY DO Unavailable Unavailable KIMBERLY-ANJU, ROSMERY DO Unavailable Unavailable KIMBERLY-ANJU, ROSMERY DO Unavailable Unavailable KIMBERLY-ANJU, ROSMERY DO Unavailable Unavailable KIMBERLY-ANJU, ROSMERY DO Unavailable Unavailable KIMBERLY-ANJU, ROSMERY DO Unavailable Unavailable KIMBERLY-ANJU, ROSMERY DO Unavailable Unavailable KIMBERLY-ANJU, ROSMERY DO Unavailable Unavailable KIMBERLY-ANJU, ROSMERY DO Unavailable Unavailable KIMBERLY-ANJU, ROSMERY DO Unavailable Unavailable KIMBERLY-ANJU, ROSMERY DO Unavailable Unavailable KIMBERLY-ANJU, ROSMERY DO Unavailable Unavailable KIMBERLY-ANJU, ROSMERY DO Unavailable Unavailable KIMBERLY-ANJU, ROSMERY DO Unavailable Unavailable KIMBERLY-ANJU, ROSMERY DO Unavailable Unavailable KIMBERLY-ANJU, ROSMERY DO Unavailable Unavailable KIMBERLY-ANJU, ROSMERY DO Unavailable Unavailable KIMBERLY-ANJU, ROSMERY DO Unavailable Unavailable KIMBERLY-ANJU, ROSMERY DO Unavailable Unavailable KIMBERLY-ANJU, ROSMERY DO Unavailable Unavailable KIMBERLY-ANJU, ROSMERY DO Unavailable Unavailable KIMBERLY-ANJU, ROSMERY DO Unavailable Unavailable KIMBERLY-ANJU, ROSMERY DO Unavailable Unavailable KIMBERLY-ANJU, ROSMERY DO Unavailable Unavailable KIMBERLY-ANJU, ROSMERY DO Unavailable Unavailable KIBMERLY-ANJU, ROSMERY DO Unavailable Unavailable KIMBERLY-ANJU, ROSMERY DO Unavailable Unavailable KIMBERLY-ANJU, ROSMERY DO Unavailable Unavailable KIMBERLY-ANJU, ROSMERY DO Unavailable Unavailable KIMBERLY-ANJU, ROSMERY DO Unavailable Unavailable KIMBERLY-ANJU, ROSMERY DO Unavailable Unavailable KIMBERLY-ANJU, ROSMERY DO Unavailable Unavailable KIMBERLY-ANJU, ROSMERY DO Unavailable Unavailable KIMBERLY-ANJU, ROSMERY DO Unavailable Unavailable KIMBERLY-ANJU, ROSMERY DO Unavailable Unavailable KIMBERLY-ANJU, ROSMERY DO Unavailable Unavailable KIMBERLY-ANJU, ROSMERY DO Unavailable Unavailable KIMBERLY-ANJU, ROSMERY DO Unavailable Unavailable KIMBERLY-ANJU, ROSMERY DO Unavailable Unavailable KIMBERLY-ANJU, ROSMERY DO Unavailable Unavailable KIMBERLY-ANJU, ROSMERY DO Unavailable Unavailable KIMBERLY-ANJU, ROSMERY DO Unavailable Unavailable KIMBERLY-ANJU, ROSMERY DO Unavailable Unavailable KIMBERLY-ANJU, ROSMERY DO Unavailable Unavailable KIMBERLY-ANJU, ROSMERY DO Unavailable Unavailable KIMBERLY-ANJU, ROSMERY DO Unavailable Unavailable KIMBERLY-ANJU, ROSMERY DO Unavailable Unavailable KIMBERLY-ANJU, ROSMERY DO Unavailable Unavailable KIMBERLY-ANJU, ROSMERY DO Unavailable Unavailable KIMBERLY-ANJU, ROSMERY DO Unavailable Unavailable KIMBERLY-ANJU, ROSMERY DO Unavailable Unavailable KIMBERLY-ANJU, ROSMERY DO Unavailable Unavailable KIMBERLY-ANJU, ROSMERY DO Unavailable Unavailable KIMBERLY-ANJU, ROSMERY DO Unavailable Unavailable KIMBERLY-ANJU, ROSMERY DO Unavailable Unavailable KIMBERLY-ANJU, ROSMERY DO Unavailable Unavailable KIMBERLY-ANJU, ROSMERY DO Unavailable Unavailable KIMBERLY-ANJU, ROSMERY DO Unavailable Unavailable KIMBERLY-ANJU, ROSMERY DO Unavailable Unavailable KIMBERLY-ANJU, ROSMERY DO Unavailable Unavailable KIMBERLY-ANJU, ROSMERY DO Unavailable Unavailable KIMBERLY-ANJU, ROSMERY DO Unavailable Unavailable KIMBERLY-ANJU, ROSMERY DO Unavailable Unavailable KIMBERLY-ANJU, ROSMERY DO Unavailable Unavailable KIMBERLY-ANJU, ROSMERY DO Unavailable Unavailable KIMBERLY-ANJU, ROSMERY DO Unavailable Unavailable KIMBERLY-ANJU, ROSMERY DO Unavailable Unavailable KIMBERLY-ANJU, ROSMERY DO Unavailable Unavailable KIMBERLY-ANJU, ROSMERY DO Unavailable Unavailable KIMBERLY-ANJU, ROSMERY DO Unavailable Unavailable KIMBERLY-ANJU, ROSMERY DO Unavailable Unavailable KIMBERLY-ANJU, ROSMERY DO Unavailable Unavailable KIMBERLY-ANJU, ROSMERY DO Unavailable Unavailable KIMBERLY-ANJU, ROSMERY DO Unavailable Unavailable KIMBERLY-ANJU, ROSMERY DO Unavailable Unavailable KIMBERLY-ANJU, ROSMERY DO Unavailable Unavailable KIMBERLY-ANJU, ROSMERY DO Unavailable Unavailable [place], Libia SCUBA DIVE TRAINING INSTRUCTOR Unavailable Unavailable [place], Libia SCUBA DIVE TRAINING INSTRUCTOR Unavailable Unavailable [place], Libia SCUBA DIVE TRAINING INSTRUCTOR Unavailable Unavailable [place], Libia SCUBA DIVE TRAINING INSTRUCTOR Unavailable Unavailable [place], Libia SCUBA DIVE TRAINING INSTRUCTOR Unavailable Unavailable [place], Libia SCUBA DIVE TRAINING INSTRUCTOR Unavailable Unavailable [place], Libia SCUBA DIVE TRAINING INSTRUCTOR Unavailable Unavailable [place], Libia SCUBA DIVE TRAINING INSTRUCTOR Unavailable Unavailable [place], Libia SCUBA DIVE TRAINING INSTRUCTOR Unavailable Unavailable [place], Libia SCUBA DIVE TRAINING INSTRUCTOR Unavailable Unavailable [place], Libia SCUBA DIVE TRAINING INSTRUCTOR Unavailable Unavailable [place], Libia SCUBA DIVE TRAINING INSTRUCTOR Unavailable Unavailable [place], Libia SCUBA DIVE TRAINING INSTRUCTOR Unavailable Unavailable [place], Libia SCUBA DIVE TRAINING INSTRUCTOR Unavailable Unavailable [place], Libia SCUBA DIVE TRAINING INSTRUCTOR Unavailable Unavailable [place], Libia SCUBA DIVE TRAINING INSTRUCTOR Unavailable Unavailable [place], Libia SCUBA DIVE TRAINING INSTRUCTOR Unavailable Unavailable [place], Libia SCUBA DIVE TRAINING INSTRUCTOR Unavailable Unavailable [place], Libia SCUBA DIVE TRAINING INSTRUCTOR Unavailable Unavailable [place], Libia SCUBA DIVE TRAINING INSTRUCTOR Unavailable Unavailable [place], Libia SCUBA DIVE TRAINING INSTRUCTOR Unavailable Unavailable [place], Libia SCUBA DIVE TRAINING INSTRUCTOR Unavailable Unavailable [place], Libia SCUBA DIVE TRAINING INSTRUCTOR Unavailable Unavailable [place], Libia SCUBA DIVE TRAINING INSTRUCTOR Unavailable Unavailable [place], Libia SCUBA DIVE TRAINING INSTRUCTOR Unavailable Unavailable [place], Libia SCUBA DIVE TRAINING INSTRUCTOR Unavailable Unavailable [place], Libia SCUBA DIVE TRAINING INSTRUCTOR Unavailable Unavailable [place], Libia SCUBA DIVE TRAINING INSTRUCTOR Unavailable Unavailable [place], Libia SCUBA DIVE TRAINING INSTRUCTOR Unavailable Unavailable [place], Libia SCUBA DIVE TRAINING INSTRUCTOR Unavailable Unavailable [place], Libia SCUBA DIVE TRAINING INSTRUCTOR Unavailable Unavailable [place], Libia SCUBA DIVE TRAINING INSTRUCTOR Unavailable Unavailable [place], Libia SCUBA DIVE TRAINING INSTRUCTOR Unavailable Unavailable [place], Libia SCUBA DIVE TRAINING INSTRUCTOR Unavailable Unavailable [place], Libia SCUBA DIVE TRAINING INSTRUCTOR Unavailable Unavailable [place], Libia SCUBA DIVE TRAINING INSTRUCTOR Unavailable Unavailable Rydberg, Melanie PA Unavailable Unavailable Rydberg, Melanie PA Unavailable Unavailable Rydberg, Melanie PA Unavailable Unavailable Rydberg, Melanie PA Unavailable Unavailable Rydberg, Melanie PA Unavailable Unavailable Rydberg, Melanie PA Unavailable Unavailable Rydberg, Melanie PA Unavailable Unavailable Rydberg, Melanie PA Unavailable Unavailable Rydberg, Melanie PA Unavailable Unavailable Rydberg, Melanie PA Unavailable Unavailable Rydberg, Melanie PA Unavailable Unavailable Rydberg, Melanie PA Unavailable Unavailable Rydberg, Melanie PA Unavailable Unavailable Rydberg, Melanie PA Unavailable Unavailable Rydberg, Melanie PA Unavailable Unavailable Rydberg, Melanie PA Unavailable Unavailable Rydberg, Melanie PA Unavailable Unavailable Rydberg, Melanie PA Unavailable Unavailable Rydberg, Melanie PA Unavailable Unavailable Rydberg, Melanie PA Unavailable Unavailable Rydberg, Melanie PA Unavailable Unavailable Rydberg, Melanie PA Unavailable Unavailable Rydberg, Melanie PA Unavailable Unavailable Cleveland Molina, Jacqueline Alonso MD, FACS Unavailable Unavailable Cleveland Molina, Jacqueline Alonso MD, FACS Unavailable Unavailable Cleveland Molina, Jacqueline Alonso MD, FACS Unavailable Unavailable Cleveland Molina, Jacqueline Alonso MD, FACS Unavailable Unavailable Cleveland Molina, Jacqueline Alonso MD, FACS Unavailable Unavailable Cleveland Molina, Jacqueline Alonso MD, FACS Unavailable Unavailable Cleveland Molina, Jacqueline Alonso MD, FACS Unavailable Unavailable Cleveland Molina, Jacqueline Alonso MD, FACS Unavailable Unavailable Cleveland Molina, Jacqueline Alonso MD, FACS Unavailable Unavailable Cleveland Molina, Jacqueline Alonso MD, FACS Unavailable Unavailable Cleveland Molina, Jacqueline Alonso MD, FACS Unavailable Unavailable Cleveland Molina, Jacqueline Alonso MD, FACS Unavailable Unavailable Cleveland Molina, Jacqueline Alonso MD, FACS Unavailable Unavailable Cleveland Molina, Jacqueline Alonso MD, FACS Unavailable Unavailable Cleveland Molina, Jacqueline Alonso MD, FACS Unavailable Unavailable Cleveland Molina, Jacqueline Alonso MD, FACS Unavailable Unavailable Cleveland Molina, Jacquelnie Alonso MD, FACS Unavailable Unavailable Cleveland Molina, Jacqueline Alonso MD, FACS Unavailable Unavailable Cleveland Molina, Jacqueline Alonso MD, FACS Unavailable Unavailable Cleveland Molina, Jacqueline Alonso MD, FACS Unavailable Unavailable Cleveland Molina, Jacqueline Alonso MD, FACS Unavailable Unavailable Cleveland Molina, Jacqueline Alonso MD, FACS Unavailable Unavailable Cleveland Molina, Jacqueline Alonso MD, FACS Unavailable Unavailable Cleveland Molina, Jacqueline Alonso MD, FACS Unavailable Unavailable Cleveland Molina, Jacqueline Alonso MD, FACS Unavailable Unavailable Cleveland Molina, Jacqueline Alonso MD, FACS Unavailable Unavailable Cleveland Molina, Jacqueline Alonso MD, FACS Unavailable Unavailable Cleveland Molina, Jacqueline Alonso MD, FACS Unavailable Unavailable Cleveland Molina, Jacqueline Alonso MD, FACS Unavailable Unavailable Cleveland Molina, Jacqueline Alonso MD, FACS Unavailable Unavailable Cleveland Molina, Jacqueline Alonso MD, FACS Unavailable Unavailable Cleveland Molina, Jacqueline Alonso MD, FACS Unavailable Unavailable Cleveland Molina, Jacqueline Alonso MD, FACS Unavailable Unavailable Cleveland Molina, Jacqueline Alonso MD, FACS Unavailable Unavailable Cleveland Molina, Jacqueline Alonso MD, FACS Unavailable Unavailable Cleveland Molina, Jacqueline Alonso MD, FACS Unavailable Unavailable Cleveland Molina, Jacqueline Alonso MD, FACS Unavailable Unavailable Cleveland Molina, Jacqueline Alonso MD, FACS Unavailable Unavailable Cleveland Molina, Jacqueline Alonso MD, FACS Unavailable Unavailable Hegard, Melanie SCUBA DIVE TRAINING INSTRUCTOR Unavailable Unavailable Hegard, Melanie SCUBA DIVE TRAINING INSTRUCTOR Unavailable Unavailable Hegard, Melanie SCUBA DIVE TRAINING INSTRUCTOR Unavailable Unavailable Hegard, Melanie SCUBA DIVE TRAINING INSTRUCTOR Unavailable Unavailable Hegard, Melanie SCUBA DIVE TRAINING INSTRUCTOR Unavailable Unavailable Hegard, Melanie SCUBA DIVE TRAINING INSTRUCTOR Unavailable Unavailable Hegard, Melanie SCUBA DIVE TRAINING INSTRUCTOR Unavailable Unavailable Hegard, Melanie SCUBA DIVE TRAINING INSTRUCTOR Unavailable Unavailable Hegard, Melanie SCUBA DIVE TRAINING INSTRUCTOR Unavailable Unavailable Hegard, Melanie SCUBA DIVE TRAINING INSTRUCTOR Unavailable Unavailable Hegard, Melanie SCUBA DIVE TRAINING INSTRUCTOR Unavailable Unavailable Hegard, Melanie SCUBA DIVE TRAINING INSTRUCTOR Unavailable Unavailable Hegard, Melanie SCUBA DIVE TRAINING INSTRUCTOR Unavailable Unavailable Hegard, Melanie SCUBA DIVE TRAINING INSTRUCTOR Unavailable Unavailable Hegard, Melanie SCUBA DIVE TRAINING INSTRUCTOR Unavailable Unavailable Hegard, Melanie SCUBA DIVE TRAINING INSTRUCTOR Unavailable Unavailable Hegard, Melanie SCUBA DIVE TRAINING INSTRUCTOR Unavailable Unavailable Re-disclosure Warning The records that you are about to access may contain information from federally-assisted alcohol or drug abuse programs. If such information is present, then the following federally mandated warning applies: This information has been disclosed to you from records protected by federal confidentiality rules (42 CFR part 2). The federal rules prohibit you from making any further disclosure of this information unless further disclosure is expressly permitted by the written consent of the person to whom it pertains or as otherwise permitted by 42 CFR part 2. A general authorization for the release of medical or other information is NOT sufficient for this purpose. The Federal rules restrict any use of the information to criminally investigate or prosecute any alcohol or drug abuse patient.The records that you are about to access may contain highly sensitive health information, the redisclosure of which is protected by Article 27-F of the [facility] Public Health law. If you continue you may have access to information: Regarding HIV / AIDS; Provided by facilities licensed or operated by the [facility] Office of Mental Health; or Provided by the [facility] Office for People With Developmental Disabilities. If such information is present, then the following [facility] mandated warning applies: This information has been disclosed to you from confidential records which are protected by state law. State law prohibits you from making any further disclosure of this information without the specific written consent of the person to whom it pertains, or as otherwise permitted by law. Any unauthorized further disclosure in violation of state law may result in a fine or senior living sentence or both. A general authorization for the release of medical or other information is NOT sufficient authorization for further disc losure. Allergies and Adverse Reactions Type Description Substance Reaction Status Data Source(s ) Allergy to substance No Known Allergies No known allergies (situation ) GERARD (Gavin Molina MD [facility]) Allergy to substance No Known Allergies No known allergies (situation ) G[facility]ARD (Gavin Molina MD [facility]) Allergy to substance No Known Allergies No known allergies (situation ) [facility]ARD (Gavin Molina MD [facility]) Family History Family Member Name Family Member Gender Family Member Status Date o f Status Description Data Source(s) Unknown Unknown Problem [facility] ([facility], [facility]) m Unknown Male Problem [facility] ([facility]) Unknown Male Problem MEDENT ([facility]) Unknown Unknown Problem [facility] ([facility], ) Encounters Encounter Providers Location Date Indications Data Source(s ) Outpatient [id number] [facility], [facility] [id number] 08/21/2021 12:00:00 AM EST eCW1 ([facility]) Outpatient Attender: Melanie Portillo [facility] Main Office 1 10/20/2020 11:45:00 AM EST [facility] ([facility]) Outpatient Attender: Lisset Johnston carmelo 08/06/2021 03:30:00 PM EST [facility] ([facility], [facility]) Outpatient Attender: Melanie Portillo [facility] Main Office 1 10/05/2020 02:00:00 PM EST [facility] ([facility]) Outpatient Attender: Blayne MILLER [facility][1] 06/25/2021 03:40:00 PM EDT [facility] ([facility]) Outpatient Attender: Blayne MILLER [facility][1] 06/04/2021 08:00:00 AM EDT [facility] ([facility]) Outpatient Attender: Li Luna [facility] Main Office 04/03/2021 10:15:00 AM EDT [facility] ([facility]) Outpatient<td ID="encounterTypeDescripti onID0">10 Month Follow-Up</td><td>Gavin Moy MD, FACS</td><td>Gavin Moy MD [facility]</td><td>02/05/2021</td><td>9:41AM</td><td>10:41AM</td><td><content ID="encounterDiagnosisID0-0">Blepharitis Ulcerative</content>, <content ID="encounterDiagnosisID0-1">Blepharitis Squamous</content>, <content ID="encounterDiagnosisID0-2">Dry Eye Syndrome</content>, <content ID="encounterDiagnosisID0-3">Vitreous Disorders Degeneration</content></td> Attender: Gavin Molina MD, FACS Gavin Moy MD [facility] 02/05/2021 09:41:0 0 AM EDT - 02/05/2021 10:41:00 AM EDT Vitreous Disorders DegenerationDry Eye SyndromeBlepharitis SquamousBlepharitis UlcerativeVitreous Disorders DegenerationDry Eye SyndromeBlepharitis SquamousBlepharitis UlcerativeVitreous Disorders DegenerationDry Eye SyndromeBlepharitis SquamousBlepharitis Ulcerative GERARD (Gavin Molina MD [facility]) Vitreous Disorders Degeneration Dry Eye Syndrome 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 Dry Eye Syndrome 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 Dry Eye Syndrome Blepharitis Squamous Blepharitis Ulcerative Outpatient Attender: Blayne MILLER [facility][1] 01/24/2021 03:00:00 PM EDT MEDENT ([facility]) Outpatient Attender: ROSMERY ANG DO [facility] 12/18/2020 04:00:00 PM EDT MEDENT ([facility]) Outpatient Attender: Blayne MILLER [facility] 12/06/2020 03:40:00 PM EDT MEDENT ([facility]) Outpatient Attender: Melanie MILLER 10/26/2020 08:00:00 AM [facility] Outpatient Attender: Melanie MILLER 09/28/2020 01:00:00 PM [facility] Outpatient 09/24/2020 11:44:43 AM EST [facility]ER ([facility]) Immunizations Vaccine Date Status Description Data Source(s) COVID-19 VACCINE Moderna 07/23/2021 12:00:00 AM EDT completed [facility] Vaccine Series Complete: YESThis Data wa s Submitted to [facility] [employer]. COVID-19 VACCINE Moderna 10/26/2020 12:00:00 AM EST completed [facility] Vaccine Series Complete: YESThis Data wa s Submitted to [facility] [employer]. COVID-19 VACCINE Moderna 09/28/2020 12:00:00 AM EST completed [facility] Vaccine Series Complete: NOThis Data was Submitted to [facility] [employer]. Medications Medication Brand Name Start Date Product Form Dose Route Admi nistrative Instructions Pharmacy Instructions Status Indications Reaction Description Data Source(s) 5 % 08/21/2021 12:00:00 AM EST cream 40 APPLY TOPICALLY TWO TIMES A DAY TO AFFECTED AREA(S) FOR 6 WEEKS APPLY TOPICALLY TWO TIMES A DAY TO AFFEC [place] AREA(S) FOR 6 WEEKS SOLD: 08/22/2021 [facility] Fluorouracil 50 MG/ML Topical Cream Fluorouracil 5 % Fluorou racil 5 % 08/21/2021 12:00:00 AM EST 1.0 {application} active Fluorouracil 5 % eCW1 ([facility]) 30 mg 08/21/2021 12:00:00 AM EST capsule 30 TAKE ONE CAPSULE BY MOUTH EVERY DAY MAXIMUM DAILY DOSE = 1 TAKE ONE CAPSULE BY MOUTH EVERY DAY MAXI MUM DAILY DOSE = 1 SOLD: 08/22/2021 [facility] 300 mg 08/08/2021 12:00:00 AM EST capsule 20 TAKE ONE CAPSULE BY MOUTH TWICE A DAY FOR 10 DAYS TAKE ONE CAPSULE BY MOUTH TWICE A DAY FOR 10 DAYS SOLD : 08/16/2021 [facility] valacyclovir 1000 MG Oral Tablet VALACYCLOVIR HCL 08/07/2021 12: 00:00 AM EST tablet 90 TAKE ONE TABLET BY MOUTH EVERY D AY TAKE ONE TABLET BY MOUTH EVERY DAY SOLD: 08/07/2021 [facility] cefdinir 300 MG Oral Capsule Cefdinir 08/06/2021 12:00:00 AM EST ORAL active [facility]ENT ([facility] 50 mcg/actuation 08/06/2021 12:00:00 AM EST spray,suspension 16 SPRAY ONE SPRAY IN EACH NOSTRIL TWICE A DAY NEEDED FOR CONGESTION SPRAY ONE SPRAY IN EACH NOSTRIL TWICE A DAY NEEDED FOR CONGESTION SOLD: 08/06/2021 [facility] 150 mg 07/20/2021 12:00:00 AM EDT tablet sustained-releas e 12 hr 90 TAKE ONE TABLET BY MOUTH EVERY DAY TAKE ONE TABLET BY MOUTH EVERY DAY SOLD: 07/22/2021 [facility] 30 mg 07/15/2021 12:00:00 AM EDT capsule 30 TAKE ONE CAPSULE BY MOUTH EVERY DAY * MAXIMUM DAILY DOSE = 1 TAKE ONE CAPSULE BY MOUTH EVERY DAY * MANDI UHRTADO DAILY DOSE = 1 SOLD: 07/17/2021 [facility] Amoxicillin 875 MG / Clavulanate 125 MG Oral Tablet Am oxicillin/Clavulanate Potassium 06/25/2021 12:00:00 AM EDT ORAL active MEDENT ([facility]) Amoxicillin 875 MG / Clavulanate 125 MG Oral Tablet 87 5-125 mg AMOXICILLIN/POTASSIUM CLAV 06/25/2021 12:00:00 AM EDT tablet 20 TAKE ONE TABLET BY MOUTH TWICE A DAY UNTIL GONE TAKE ONE TABLET BY MOUTH TWICE A DAY UNTIL GONE SOLD: 06/25/2021 [facility] Fluticasone propionate 0.05 MG/ACTUAT Metered Dose [facility] 50 mcg/actuation FLUTICASONE PROPIONATE 06/14/2021 12:00:00 AM EDT spray,suspension 16 SPRAY ONE SPRAY IN EACH NOSTRIL TWO TIMES A DAY NEEDED FOR CONGESTION SPRAY ONE SPRAY IN EACH NOSTRIL TWO TIMES A DAY NEEDED FOR CONGESTION SOLD: 06/15/2021 [facility] Fluticasone Propionate Fluticasone Propionate 06/13/2021 12:00:00 AM E DT active [facility] ([facility]) 30 mg 06/11/2021 12:00:00 AM EDT capsule 30 TAKE ONE CAPSULE BY MOUTH EVERY DAY MAXIMUM DAILY DOSE = 1 CAPSULE TAKE ONE CAPSULE BY MOUTH EVERY DAY MAXI MUM DAILY DOSE = 1 CAPSULE SOLD: 06/15/2021 [facility] 60 mcg (15 mcg x 4)/0.5 mL 06/10/2021 12:00:00 AM EDT syring e 0 USE DIRECTED USE DIRECTED SOLD: 06/10/2021 [facility] 0.03 % 05/20/2021 12:00:00 AM EDT drops with applicator 3 APPLY TO LID MARGIN BEFORE BED APPLY TO LID MARGIN BEFORE BED SOLD: 05/20/2021 [facility] 30 mg 05/07/2021 12:00:00 AM EDT capsule 30 TAKE ONE CAPSULE BY MOUTH EVERY DAY MAXIMUM DAILY DOSE = 1 TAKE ONE CAPSULE BY MOUTH EVERY DAY MAXI MUM DAILY DOSE = 1 SOLD: 05/07/2021 [facility] lisdexamfetamine dimesylate 30 MG Oral Capsule [Vyvanse] Vyv anse 05/06/2021 12:00:00 AM EDT ORAL active [facility] ([facility]) valacyclovir 1000 MG Oral Tablet VALACYCLOVIR HCL 04/19/2021 12: 00:00 AM EDT tablet 90 TAKE ONE TABLET BY MOUTH EVERY D AY TAKE ONE TABLET BY MOUTH EVERY DAY SOLD: 04/20/2021 [facility] ciclopirox 0.0077 MG/MG Topical Gel Ciclopirox 04/03/2021 12:00:00 AM EDT active [facility] ([facility]) 0.77 % 04/03/2021 12:00:00 AM EDT gel 45 APPLY TO FEET TWICE A DAY FOR 2 WEEKS APPLY TO FEET TWICE A DAY FOR 2 WEEKS SOLD: 04/03/2021 [facility] 40 mg 03/26/2021 12:00:00 AM EDT capsule 30 TAKE ONE CAPSULE BY MOUTH EVERY DAY MAXIMUM DAILY DOSE = 1 TAKE ONE CAPSULE BY MOUTH EVERY DAY MAXI MUM DAILY DOSE = 1 SOLD: 03/27/2021 [facility] 5 mg/gram (0.5 %) 03/13/2021 12:00:00 AM EDT ointment 3 APPLY TO INCISION FOUR TIMES A DAY FOR 7-10 DAYS APPLY TO INCISION FOUR TIMES A DAY FOR 7-10 DAYS SOLD: 03/15/2021 [facility] 40 mg 02/13/2021 12:00:00 AM EDT capsule 30 TAKE ONE CAPSULE BY MOUTH EVERY DAY, MAXIMUM DAILY DOSE = 1 CAPSULE TAKE ONE CAPSULE BY MOUTH EVERY DAY, MAX IMUM DAILY DOSE = 1 CAPSULE SOLD: 02/13/2021 [facility] montelukast 10 MG Oral Tablet Montelukast Sodium 10 MG Oral Tablet Montelukast Sodium 10 MG Oral Tablet 02/05/2021 12:00:00 AM EDT 1 active montelukast 10 MG Oral Tablet [facility] ([facility]) lisdexamfetamine dimesylate 10 MG Oral C apsule [Vyvanse] Vyvanse 10 MG Oral Capsule Vyvanse 10 MG Oral Capsule 02/05/2021 12:00:00 AM EDT 1 active lisdexamfetamine dimesylate 10 MG Oral C apsule [Vyvanse] [facility] ([facility]) montelukast 10 MG Oral Tablet MONTELUKAST SODIUM 01/24/2021 12:0 0:00 AM EDT tablet 30 TAKE ONE TABLET BY MOUTH EVERY D AY TAKE ONE TABLET BY MOUTH EVERY DAY SOLD: 05/16/2021 [facility] montelukast 10 MG Oral Tablet MONTELUKAST SODIUM 01/24/2021 12:0 0:00 AM EDT tablet 30 TAKE ONE TABLET BY MOUTH EVERY D AY TAKE ONE TABLET BY MOUTH EVERY DAY SOLD: 01/24/2021 [facility] lisdexamfetamine dimesylate 40 MG Oral Capsule [Vyvanse] Vyv anse 01/24/2021 12:00:00 AM EDT ORAL completed [facility] ([facility]) montelukast 10 MG Oral Tablet MONTELUKAST SODIUM 01/24/2021 12:0 0:00 AM EDT tablet 30 TAKE ONE TABLET BY MOUTH EVERY D AY TAKE ONE TABLET BY MOUTH EVERY DAY SOLD: 08/22/2021 [facility] montelukast 10 MG Oral Tablet MONTELUKAST SODIUM 01/24/2021 12:0 0:00 AM EDT tablet 30 TAKE ONE TABLET BY MOUTH EVERY D AY TAKE ONE TABLET BY MOUTH EVERY DAY SOLD: 04/22/2021 [facility] montelukast 10 MG Oral Tablet MONTELUKAST SODIUM 01/24/2021 12:0 0:00 AM EDT tablet 30 TAKE ONE TABLET BY MOUTH EVERY D AY TAKE ONE TABLET BY MOUTH EVERY DAY SOLD: 03/02/2021 [facility] montelukast 10 MG Oral Tablet MONTELUKAST SODIUM 01/24/2021 12:0 0:00 AM EDT tablet 30 TAKE ONE TABLET BY MOUTH EVERY D AY TAKE ONE TABLET BY MOUTH EVERY DAY SOLD: 07/10/2021 [facility] montelukast 10 MG Oral Tablet Montelukast Sodium 01/24/2021 12:00:00 AM EDT ORAL active [facility] ([facility]) 30 mg 01/07/2021 12:00:00 AM EDT capsule 30 TAKE ONE CAPSULE BY MOUTH DAILY MAXIMUM DAILY DOSE = 1 CAPSULE TAKE ONE CAPSULE BY MOUTH DAILY MAXIMUM DAILY DOSE = 1 CAPSULE SOLD: 01/09/2021 [facility] Dexamethasone 0.001 MG/MG / Neomycin 0.0 035 MG/MG / Polymyxin B 10 UNT/MG Ophthalmic Ointment Bpzbvqdb-Bdnjepesa-Ztzeviot 3.5-95856-3.1 Ophthalmic Ointment Ooaufwie-Blfksmncq-Bluokqug 3.5-94069-4.1 Ophthalmic O intment 01/04/2021 12:00:00 AM EDT active dexamethasone 0.001 MG/MG / neomycin 0.0035 MG/MG / polymyxin B 10 UNT/MG Ophthalmic Ointment [facility] ([facility]) Dexamethasone 0.001 MG/MG / Neomycin 0.0 035 MG/MG / Polymyxin B 10 UNT/MG Ophthalmic Ointment 3.5 mg/g-10,000 unit/g-0.1 % NEOMYCIN/POLYMYXIN B/DEXAMETHA 01/04/2021 12:00:00 AM EDT ointment 3 APPLY THIN BEAD TO BOTH LOWER EYELIDS AT BEDTIME NEEDED APPLY THIN BEAD TO BOTH LOWER EYELIDS AT BEDTIME NE EDED SOLD: 01/09/2021 [facility] Dexamethasone 0.001 MG/MG / Tobramycin 0 .003 MG/MG Ophthalmic Ointment [Tobradex] TobraDex 0.3-0.1% Ophthalmic Ointment TobraDex 0.3-0.1% Ophthalmic Ointment 12/31/2020 12:00:00 AM EDT aborted dexamethasone 0.001 MG/MG / tobramycin 0.003 MG/MG Ophthalmic Ointment [Tobradex] [facility] ([facility]) 30 mg 12/06/2020 12:00:00 AM EDT capsule 30 TAKE ONE CAPSULE BY MOUTH EVERY DAY TAKE ONE CAPSULE BY MOUTH EVERY DAY SOLD: 12/06/2020 [facility] lisdexamfetamine dimesylate 30 MG Oral Capsule [Vyvanse] Vyv anse 12/06/2020 12:00:00 AM EDT ORAL completed [facility] ([facility]) 20 mg 09/24/2020 12:00:00 AM EST tablet 10 TAKE TWO TABLETS BY MOUTH EVERY DAY TAKE TWO TABLETS BY MOUTH EVERY DAY SOLD: 09/24/2020 [facility] 0.3 % 09/24/2020 12:00:00 AM EST drops 5 INSTILL 1-2 DROPS INTO THE RIGHT EYE FOUR TIMES A DAY FOR 5 DAYS INSTILL 1-2 DROPS INTO THE RIGHT EYE FOU R TIMES A DAY FOR 5 DAYS SOLD: 09/24/2020 [facility] 137 mcg (0.1 %) 09/24/2020 12:00:00 AM EST aerosol,spray 30 SPRAY 2 SPRAYS EACH NOSTRIL EVERY 12 HOURS SPRAY 2 SPRAYS EACH NOSTRIL EVERY 12 HOURS SOLD: 09/24/2020 [facility] 15 mg 08/08/2020 12:00:00 AM EST tablet 30 TAKE 1 TABLET BY MOUTH ONCE DAILY WITH DINNER TAKE 1 TABLET BY MOUTH ONCE DAILY WITH DINNER SOLD: 08/08/2020 [facility] 0.025 % 08/07/2020 12:00:00 AM EST cream 30 APPLY TO FOOT EVERY 8 HOURS APPLY TO FOOT EVERY 8 HOURS SOLD: 08/08/2020 [facility] valacyclovir 1000 MG Oral Tablet VALACYCLOVIR HCL 07/21/2020 12: 00:00 AM EDT tablet 90 TAKE ONE TABLET BY MOUTH EVERY D AY TAKE ONE TABLET BY MOUTH EVERY DAY SOLD: 07/21/2020 [facility] Dexamethasone 0.001 MG/MG / Tobramycin 0 .003 MG/MG Ophthalmic Ointment [Tobradex] TobraDex 0.3-0.1% Ophthalmic Ointment TobraDex 0.3-0.1% Ophthalmic Ointment 03/08/2020 12:00:00 AM EDT aborted dexamethasone 0.001 MG/MG / tobramycin 0.003 MG/MG Ophthalmic Ointment [Tobradex] [facility] ([facility]) Insurance Providers Payer name Policy type / Coverage type Policy ID Covered democrat ID Covered democrat's relationship to jolly Policy Jolly Plan Information [facility] [id number] SP [id number] [facility] [id number] SP [id number] [facility] [id number] SP [id number] [id number] Jessi [id number] H [id number] Self [id number] [facility] [id number] SP [id number] [employer] Commercial [id number] Self [id number] MVP Commercial [id number] Self [id number] MVP Commercial [id number] Self [id number] MVP Commercial [id number] Self [id number] MVP Commercial [id number] Self [id number] [facility] [id number] [facility] [id number] MVP Health Maintenance Organization (HMO) [id number] 1 [id number] Family Dependent [id number] MVP Commercial [id number] Self [id number] MVP Commercial [id number] Self [id number] MVP Health Maintenance Organization (HMO) [id number] 1 [id number] Family Dependent [id number] [employer] Health Maintenance Organization (HMO) [id number] 1 [id number] Family Dependent [id number] [facility] O [id number] S [id number] MVP Commercial [id number] Self [id number] MVP Commercial [id number] Self [id number] MVP Commercial [id number] Self MVP PI PI MVP Health Plan [facility] Other 0 [id number] Self 0 [employer] [facility] Other 0 [id number] Self 0 [facility] Other 0 [id number] Self 0 [facility] O [id number] P [id number] SELF PAY UNAVAILABLE S UNAVAILA BLE SELF PAY UNAVAILABLE S UNAVAILA BLE Problems, Conditions, and Diagnoses Code Display Name Description Problem Type Effective Dates Data Source(s) Z23 Encounter for immunization ENCOUNTER FOR IMMUNIZATION Diagnosis 10/26/2020 08:00:00 AM [facility] C44.01 [id number] Basal cell carcinoma of lower lip Problem 08/21/2021 12:00:00 AM EST [facility] ([facility]) Surgeries/Procedures Procedure Description Date Indications Data Source(s) OFFICE OUTPATIENT VISIT 15 MINUTES 08/20/2021 12:00:00 AM EST [facility] ([facility]) OFFICE OUTPATIENT VISIT 15 MINUTES 08/06/2021 12:00:00 AM EST [facility] ([facility]) OFFICE OUTPATIENT VISIT 25 MINUTES 08/05/2021 12:00:00 AM EST [facility] ([facility]) OFFICE OUTPATIENT VISIT 15 MINUTES 06/25/2021 12:00:00 AM EDT [facility] ([facility]) OFFICE OUTPATIENT VISIT 25 MINUTES 06/04/2021 12:00:00 AM EDT [facility] ([facility]) Shave Biopsy Of Skin, Single Lesion 04/03/2021 12:00:0 0 AM EDT [facility] ([facility]) OFFICE OUTPATIENT VISIT 25 MINUTES 04/03/2021 12:00:00 AM EDT [facility] ([facility]) Intermediate Eye Exam Established Patient Intermediate Eye Exam Established Patient 02/05/2021 12:00:00 AM EDT [facility] (To[facility]) Surgical / procedural history Hysterect tori 2018, Skin Cancer removal (BCC/Squamous) - 2014 (hand, nose, back), IVF 2014 Surgical / procedural history Hysterectomy 2018, Skin Cancer removal (BCC/Squamous) - 2014 (hand, nose, back), IVF 201402/05/2021 12:00:00 AM EDT [facility] ([facility]) Laser assisted in situ keratomileusis (procedure) Hist ory of LASIK surgery of both corneas 199702/05/2021 12:00:00 AM EDT [facility] ([facility]) Intermediate Eye Exam Established Patient Intermediate Eye Exam Established Patient 02/05/2021 12:00:00 AM EDT [facility] (Toan [facility]ina [facility]) OFFICE OUTPATIENT VISIT 25 MINUTES 01/24/2021 12:00:[facility] OFFICE OUTPATIENT VISIT 15 MINUTES 12/18/2020 12:00:00 AM EDT [facility] OFFICE OUTPATIENT VISIT 15 MINUTES 12/06/2020 12:00:00 AM EDT [facility] Results ID Date Data Source [id number] 08/10/2021 12:00:00 AM EST [facility] Name Value Range Interpretation Code Description Data Gladis rce(s) Supporting Document(s) SARS-CoV2 Rapid Antigen Negative [facility] This lab was ordered by [facility] and reported by [facility]. ID Date Data Source [id number] 08/06/2021 12:00:00 AM EST [facility] Name Value Range Interpretation Code Description Data Gladis rce(s) Supporting Document(s) SARS-CoV2 Rapid Antigen Negative [facility] This lab was ordered by [facility] and reported by [facility]. ID Date Data Source [id number] 04/03/2021 10:43:00 AM EDT [facility] ([facility]) Name Value Range Interpretation Code Description Data Gladis rce(s) Supporting Document(s) Laboratory test finding (navigational concept) Laboratory test result [facility] ([facility]) Refer to Dr Griffin letter awaiting sign ature LW 04/13/21 photo emailed, letter sent, awaiting appt LW 04/17/21 appt 04/17, pt is aware LW Laboratory test finding (navigational concept) Laboratory test result [facility] ([facility]) Refer to Dr Griffin letter awaiting sign ature LW 04/13/21 photo emailed, letter sent, awaiting appt LW 04/17/21 appt 04/17, pt is aware LW ID Date Data Source [id number] 12/12/2020 08:00:00 AM EDT [facility] ([facility]) Name Value Range Interpretation Code Description Data Gladis rce(s) Supporting Document(s) White Blood Count 6.0 10 4.0-10.0 Normal (applies to non-numeri c results) [facility] ([facility]) Red Blood Count 4.68 10 4.00-5.40 Normal (applies to non-numeric results) [facility] ([facility]) Hemoglobin 14.3 g/dL 12.0-15.5 Normal (applies to non-numeric resul ts) [facility] Mean Corpuscular Volume 94.2 fl 80.0-96.0 Normal ( applies to non-numeric results) [facility] ([facility]) Hematocrit 44.1 % 36.0-47.0 Normal (applies to non-numeric resul ts) [facility] ([facility]) Mean Corpuscular Hemoglobin 30.6 pg 27.0-33.0 Norm al (applies to non-numeric results) [facility] ([facility]) Red Cell Distribution Width 12.5 % 11.5-14.5 Norm al (applies to non-numeric results) [facility] ([facility]) Mean Corpuscular HGB Conc 32.4 g/dL 32.0-36.5 Normal (applies to non-numeric results) [facility] ([facility]) Neutrophils % 49.5 % 36.0-66.0 Normal (applies to non-numeric re sults) [facility] ([facility]) Platelet Count, Automated 298 10 150-450 Normal (applies to non-numeric results) [facility] ([facility]) [place] % 8.0 % 2.0-8.0 Normal (applies to non-numeric resul ts) [facility] ([facility]) Lymph % 37.4 % 24.0-44.0 Normal (applies to non-numeric resul ts) [facility] ([facility]) Eos % 3.7 % 0.0-3.0 Above high normal [facility] ([facility]) Baso % 1.2 % 0.0-1.0 Above high normal [facility] ([facility]) Immature Granulocyte % 0.2 % 0-3.0 Normal (applies to non-n umeric results) [facility] ([facility]) Neutrophils # 3.0 10 1.5-8.5 Normal (applies to non-numeric re sults) [facility] ([facility]) Nucleated Red Blood Cell % 0.0 % 0-0 Normal (applies to n on-numeric results) [facility] ([facility]) Lymph # 2.2 10 1.5-5.0 Normal (applies to non-numeric resul ts) [facility] ([facility]) [place] # 0.5 10 0.0-0.8 Normal (applies to non-numeric resul ts) [facility] ([facility]) Eos # 0.2 10 0.0-0.5 Normal (applies to non-numeric resul ts) [facility] ([facility]) Baso # 0.1 10 0.0-0.2 Normal (applies to non-numeric resul ts) [facility] ([facility]) ID Date Data Source [id number] 12/12/2020 08:00:00 AM EDT [facility] ([facility]) Name Value Range Interpretation Code Description Data Gladis rce(s) Supporting Document(s) Thyroid Stimulating Hormone 1.160 uIU/ML 0.358-3.740 Norm al (applies to non- numeric results) [facility] ([facility]) Free T4 1.34 ng/dL 0.76-1.46 Normal (applies to non-numeric resul ts) [facility] ([facility]) ID Date Data Source [id number] 12/12/2020 08:00:00 AM EDT [facility] ([facility]) Name Value Range Interpretation Code Description Data Gladis rce(s) Supporting Document(s) Glucose, Fasting 89 mg/dL 70-100 Normal (applies to non-numeric results) [facility] ([facility]) Blood Urea Nitrogen 15 mg/dL 7-18 Normal (applies to non-nume viraj results) [facility] ([facility]) Creatinine For GFR 0.64 mg/dL 0.55-1.30 Normal (applies to non -numeric results) [facility] ([facility]) Glomerular Filtration Rate Laboratory test result Normal (applies to non- numeric results) [facility] ([facility]) <content>Units are mL/min/1.73 m2</content>
<content></content>
<content>Chronic Kidney Disease Staging per NKF:</content>
<content></content>
<content>Stage I & II GFR >=60 Normal to Mildly Decreased</content>
<content>Stage III GFR 30- 59 Moderately Decreased</content>
<content>Stage IV GFR 15-29 Severely Decreased</content>
<content>Stage V GFR <15 Very Little GFR Left</content>
<content>ESRD GFR <15 on SOLAR CREW MEMBER</content>
<content></content> Sodium Level 142 meq/L 136-145 Normal (applies to non-numeric res ults) [facility] ([facility]) Potassium Serum 4.7 meq/L 3.5-5.1 Normal (applies to non-numeric results) [facility] ([facility]) Chloride Level 108 meq/L 98-[address] [facility] ([facility]) Anion Gap 4 meq/L 8-16 Below low normal [facility] ( [facility]) Carbon Dioxide Level 30 meq/L 21-32 Normal (applies to non-num pinky results) [facility] ([facility]) Calcium Level 9.4 mg/dL 8.5-10.1 Normal (applies to non-numeric re sults) [facility] ([facility]) Ast/Sgot 7 U/L 7-37 Normal (applies to non-numeric resul ts) [facility] ([facility]) Alt/SGPT 10 U/L 12-78 Below low normal [facility] ( [facility]) Alkaline Phosphatase 70 U/L 45-117 Normal (applies to non-num pinky results) [facility] ([facility]) Bilirubin,Total 0.3 mg/dL 0.2-1.0 Normal (applies to non-numeric results) [facility] ([facility]) Total Protein 7.3 GM/DL 6.4-8.2 Normal (applies to non-numeric re sults) [facility] ([facility]) Albumin 3.9 GM/DL 3.2-5.2 Normal (applies to non-numeric resul ts) [facility] ([facility]) Albumin/Globulin Ratio 1.1 1.2-2.2 Below low normal [facility] ID Date Data Source [id number] 12/12/2020 08:00:00 AM EDT [facility] ([facility]) Name Value Range Interpretation Code Description Data Gladis rce(s) Supporting Document(s) Hemoglobin A1c 5.1 % Normal (applies to non-numeric r esults) [facility]) <content>REFERENCE RANGES:</content><br/ ><content></content>
<content><=5.6% NORMAL</content>
<content>5.7-6.4% SUGGESTS IMPAIRED GLUCOSE METABOLISM/PREDIABETIC</content>
<content>>= 6.5% ABNORMAL</content>
<content></content> Estimated Average Glucose 100 mg/dL 60-110 Normal (applies to non-numeric results) [facility]) ID Date Data Source [id number] 12/12/2020 08:00:00 AM EDT [facility] ([facility]) Name Value Range Interpretation Code Description Data Gladis rce(s) Supporting Document(s) Triglycerides Level 120 mg/dL Normal (applies to non-nume viraj results) [facility] ([facility]) Cholesterol Level 291 mg/dL Above high normal [facility] ([facility]) HDL Cholesterol 66 mg/dL Normal (applies to non-numeric results) [facility] ([facility]) LDL Cholesterol 201 mg/dL Above high normal [facility] ([facility]) Non-HDL-C 225 mg/dL Normal (applies to non-numeric resul ts) [facility] ([facility]) Cholesterol Risk Ratio 4.409 Normal (applies to non-n umeric results) [facility] ([facility]) ID Date Data Source [id number] 11/21/2020 12:00:00 AM EST [facility] Rosmery Jaramillo DO Patient Name: JENNIFER JOSÉ[address] Date of : 1975 1 Date of Exam:11/21/2020CHAYITO López [id number]#: Fax: [phone] EXAM: MAMMO SCREENING WITH CADCLINICAL INFORMATION: Screening.Digital screening (2D) mammography was performed bilaterally in the CC andMLO projections. Additionally, breast tomosynthesis (3D mammography) wasperformed bilaterally in the CC and MLO projections.Comparison 11/15/2019, 11/04/2018, 10/12/2017.She has no current complaint or personal history of breast cancer. Familyhistory includes a maternal aunt with breast cancer at age 48. She had anegative right breast biopsy in 2015.The Volpara volumetric breast density category is B, there are scatteredareas of fibroglandular density.FINDINGS:There is a moderate amount of residual fibroglandular tissue remainingwhich may reduce the sensitivity of mammography. There is a benignintramammary node in the upper outer quadrant of the right breast.Stereotactic clip seen in the right breast upper/outer quadrant, unchanged. Scattered lymph nodes are seen in the axilla. No dominant masses,suspicious cluster of microcalcifications or secondary signs of malignancyare seen.The 3D tomosynthesis images show no additional findings.IMPRESSION:BI-RADS Category 2 - Benign Finding(s). Stable mammogram. There is noevidence of malignant alteration of the breasts. Followup examinati onrecommended in one year.This mammogram was read with the assistance of Ramesh Love Ogorod, an FDAapproved computer aided detection system for mammography.Negative x-ray reports should not delay surgical consultation if a dominantor clinically suspicious mass is present.Not all breast cancers can be identified by mammography. Therefore, werecommend that you continue to perform regular breast self-examination andphysical examination and then promptly contact your physician of anyconcerns or changes.Adenosis and dense breasts may obscure an underlying neoplasm.The patient states that a clinical breast examination was over a year ago.Based on the personal and family history information your patient suppliedat the time of imaging, her lifetime risk of breast cancer estimated by theTyrer-Cuzick model is 15.3%. Given that this patient has less than 20% TCrisk score, no further medical management is currently recommended at thistime.Parker Douglass, BRETT/Jill you for referring JENNIFER JOSÉ to our office. Electronically Signed - PARKER DOUGLASS MD 11/21/20 15:27 Name Value Range Interpretation Code Description Data Gladis rce(s) Supporting Document(s) ID Date Data Source [id number] 09/24/2020 11:56:00 AM EST [facility]) SINUS SERIES ONE VIEW INDICATION: NASAL CONGESTION, DUNBAR COMPARISON/CORRELATION: No existing prior relevant studies are available for comparison. FINDINGS/IMPRESSION:Paranasal sinuses and mastoids are aerated. Midline nasal septum. No fracture. Professional interpretation performed at [facility] . Name Value Range Interpretation Code Description Data Gladis rce(s) Supporting Document(s) ID Date Data Source [id number] 09/24/2020 11:25:00 AM EST [facility] Name Value Range Interpretation Code Description Data Gladis rce(s) Supporting Document(s) SARS-CoV-2 by LAURENCE Not Detected [facility] This lab was ordered by [facility] and reported by [employer]. ID Date Data Source [id number] 09/27/2020 02:03:00 PM EST [facility] Name Value Range Interpretation Code Description Data Gladis rce(s) Supporting Document(s) SARS COV2 SOURCE Laboratory [facility] SARS COV 2 BY PCR Laboratory [facility] Not Detected INTERPRETIVE INFORMATION: S ARS-CoV-2 (COVID-19) by LAURENCE This test should be ordered for the detection of the 2019 novel coronavirus SARS-CoV-2 in individuals who meet SARS-CoV-2 clinical and/or epidemiological criteria. The Coronavirus SARS-CoV-2 (COVID-19) by nucleic acid amplification test is for in vitro diagnostic use under the FDA Emergency Use Authorization (EUA) for US laboratories certified under CLIA to perform high complexity tests. This test has not been FDA cleared or approved. In compliance with this authorization, please visit [email or web address] for more information and to access the applicable information sheets. Not Detected results do not rule out the presence of PCR inhibitors in the patient specimen or assay specific nucleic acid in concentrations below the level of detection by the assay. Detected results are indicative of the presence of SARS-CoV-2 RNA. Due to the complexity of nucleic acid amplification methodologies, there may be a risk of false positive results. Clinical correlation with patient history and other diagnostic information is necessary to determine patient infection status. Reliable results are dependent on adequate specimen collection, transport, storage, and handling. Performed by [facility], [address] [place] [id number] www.[email or web address], Yris Ellison MD, Lab. Director ID Date Data Source [id number] 09/24/2020 12:00:00 AM EST [place] Name Value Range Interpretation Code Description Data Gladis rce(s) Supporting Document(s) 2019 Novel Coronavirus RNA [facility] This lab was ordered by [facility] and reported by [facility]. ID Date Data Source [id number] 09/12/2020 12:00:00 AM EST [place] Name Value Range Interpretation Code Description Data Gladis rce(s) Supporting Document(s) SARS-CoV2 Rapid Antigen [facility] This lab was ordered by [facility] and reported by Ramesh Betancourt MD. Procedure Social History Code Duration Value Status Description Data Source(s ) Smoking 08/21/2021 12:00:00 AM EST Never Smoker completed Never S moker eCW1 ([facility]) Smoking 07/22/2021 09:18:16 AM EDT Never smoked tobacco (findi ng) completed Never smoked tobacco (finding) GERARD (Gavin Molina MD [facility]) Smoking 06/04/2021 12:00:00 AM EDT Patient has never smoked co mpleted Patient has never smoked MEDENT ([facility]) Smoking 05/22/2021 07:02:38 AM EDT Never smoked tobacco (findi ng) completed Never smoked tobacco (finding) GERARD (Gavin Molina MD [facility]) Smoking 02/05/2021 10:43:02 AM EDT Never smoked tobacco (findi ng) completed Never smoked tobacco (finding) GERARD (Gavin Molina MD [facility]) Vital Signs ID Date Data Source UNK Name Value Range Interpretation Code Description Data Source(s) Body weight 171.6 [lb_av] 171.6 [lb_av] eCW1 ([facility]) Body weight 77.84 kg 77.84 kg W1 ([facility]) Body height [in_i] W1 ([facility]) Body mass index (BMI) [Ratio] 29.45 kg/m2 29.45 kg/m2 W1 ([facility]) Systolic blood pressure 124 mm[Hg] 124 mm[Hg] e CW1 ([facility]) Diastolic blood pressure 83 mm[Hg] 83 mm[Hg] eCW1 ([facility]) Heart rate 82 /min 82 /min NENA ([facility]) Diastolic blood pressure 95 mm[Hg] 95 mm[Hg] MEDENT ([facility]) Body weight 165.00 [lb_av] 165.00 [lb_av] MEDEN T ([facility]) Systolic blood pressure 141 mm[Hg] 141 mm[Hg] M EDENT ([facility]) Diastolic blood pressure 82 mm[Hg] 82 mm[Hg] MEDENT ([facility]) Systolic blood pressure 134 mm[Hg] 134 mm[Hg] M EDENT ([facility]) Body weight 167.00 [lb_av] 167.00 [lb_av] MEDEN T ([facility]) Body height 64 [in_i] 64 [facility]i] [facility] 5'4" Body mass index (BMI) [Ratio] 28.7 kg/m2 28.7 k g/m2 [facility]) Heart rate 87 /min 87 /min MEDENT ([facility], [facility]) Respiratory rate 18 /min 18 /min [facility] ( [facility]) Oxygen saturation in Arterial blood by Pulse oximetry 98 % 98 % [facility]) Body temperature 98.6 [degF] 98.6 [degF] [facility]) Diastolic blood pressure 87 mm[Hg] 87 mm[Hg] [facility] Systolic blood pressure 132 mm[Hg] 132 mm[Hg] M GUZMAN ([facility]) Body weight 168.00 [lb_av] 168.00 [lb_av] BRENT T ([facility]) Heart rate 86 /min 86 /min [facility] Systolic blood pressure 126 mm[Hg] 126 mm[Hg] [facility] Heart rate 70 /min 70 /[facility]) Respiratory rate 18 /min 18 /min [facility] ( [facility]) Body temperature 98.2 [degF] 98.2 [degF] [facility] Oxygen saturation in Arterial blood by Pulse oximetry 99 % 99 % [facility] ([facility]) [place] body weight 115 [lb_av] 115 [lb_av] MEDEN T ([facility]) Diastolic blood pressure 74 mm[Hg] 74 mm[Hg] MEDENT ([facility]) Body height 63.5 [in_i] 63.5 [in_i] [facility]) 5'3.50" Systolic blood pressure 132 mm[Hg] 132 mm[Hg] M GUZMAN ([facility]) Diastolic blood pressure 72 mm[Hg] 72 mm[Hg] MEDENT ([facility]) Body height 63.5 [in_i] 63.5 [in_i] MEDENT ([facility]) 5'3.50" Body weight 175.00 [lb_av] 175.00 [lb_av] MEDEN T ([facility]) Body mass index (BMI) [Ratio] 30.5 kg/m2 30.5 k g/m2 MEDENT ([facility]) Heart rate 96 /min 96 /min MEDENT ([facility]) Respiratory rate 18 /min 18 /min MEDENT ( [facility]) Body temperature 98.2 [degF] 98.2 [degF] MEDENT ([facility]) Oxygen saturation in Arterial blood by Pulse oximetry 97 % 97 % MEDENT ([facility]) [place] body weight 115 [lb_av] 115 [lb_av] MEDEN T ([facility]) Systolic blood pressure 126 mm[Hg] 126 mm[Hg] M EDENT ([facility]) Diastolic blood pressure 75 mm[Hg] 75 mm[Hg] MEDENT ([facility]) Respiratory rate 18 /min 18 /min MEDENT ( [facility]) Body weight 172.00 [lb_av] 172.00 [lb_av] MEDEN T ([facility]) Heart rate 87 /min 87 /min MEDENT ([facility]) Body temperature 98.3 [degF] 98.3 [degF] MEDENT ([facility]) Oxygen saturation in Arterial blood by Pulse oximetry 97 % 97 % MED[facility] ([facility]) [place] body weight 115 [lb_av] 115 [lb_av] MEDEN T ([facility]) Systolic blood pressure 140 mm[Hg] 140 mm[Hg] M EDENT ([facility]) Diastolic blood pressure 84 mm[Hg] 84 mm[Hg] MEDENT ([facility]) Body height 63.5 [in_i] 63.5 [in_i] MEDENT ([facility]) 5'3.50" Body weight 183.00 [lb_av] 183.00 [lb_av] MEDEN T ([facility]) Body mass index (BMI) [Ratio] 31.9 kg/m2 31.9 k g/m2 MEDENT ([facility]) Systolic blood pressure 124 mm[Hg] 124 mm[Hg] M EDENT ([facility]) Diastolic blood pressure 78 mm[Hg] 78 mm[Hg] MEDENT ([facility]) Body mass index (BMI) [Ratio] 32.3 kg/m2 32.3 k g/m2 MEDENT ([facility]) Heart rate 81 /min 81 /min MEDENT ([facility]) Respiratory rate 18 /min 18 /min MEDENT ( [facility]) Body temperature 98.5 [degF] 98.5 [degF] MEDENT ([facility]) Oxygen saturation in Arterial blood by Pulse oximetry 98 % 98 % [facility] ([facility]) [place] body weight 115 [lb_av] 115 [lb_av] MEDEN T ([facility]) Body height 63.5 [in_i] 63.5 [in_i] MEDENT ([facility]) 5'3.50" Body weight 185.00 [lb_av] 185.00 [lb_av] MEDEN T ([facility]) Body mass index (BMI) [Ratio] 32.3 kg/m2 32.3 k g/m2 MEDENT ([facility]) Body height 63.5 [in_i] 63.5 [in_i] MEDENT ([facility]) 5'3.50" Body weight 185.00 [lb_av] 185.00 [lb_av] MEDEN T ([facility]) Systolic blood pressure 132 mm[Hg] 132 mm[Hg] M EDENT ([facility]) Diastolic blood pressure 86 mm[Hg] 86 mm[Hg] MEDENT ([facility]) Heart rate 69 /min 69 /min MEDENT ([facility]) Respiratory rate 18 /min 18 /min MEDENT ( [facility]) Body temperature 97.6 [degF] 97.6 [degF] MEDENT ([facility]) Oxygen saturation in Arterial blood by Pulse oximetry 98 % 98 % MEDENT ([facility]) [place] body weight 115 [lb_av] 115 [lb_av] MEDEN T ([facility]) Systolic blood pressure 125 mm[Hg] 125 mm[Hg] M EDENT ([facility]) Diastolic blood pressure 67 mm[Hg] 67 mm[Hg] MEDNIKI ([facility]) Body weight 175.00 [lb_av] 175.00 [lb_av] MEDEN T ([facility]) Body temperature 98.0 [degF] 98.0 [degF] MEDENT ([facility]) Respiratory rate 16 /min 16 /[facility] Patient Treatment Plan of Care Planned Activity Planned Date Details Description Data Source (s) Fluorouracil 50 MG/ML Topical Cream 08/21/2021 12:00:00 AM EST eCW1 ([facility]) Dexamethasone 0.001 MG/MG / Neomycin 0.0 035 MG/MG / Polymyxin B 10 UNT/MG Ophthalmic Ointment 01/04/2021 12:00:00 AM NABIL HIGGINBOTHAM (Gavin Molina MD [facility]) Dexamethasone 0.001 MG/MG / Tobramycin 0 .003 MG/MG Ophthalmic Ointment [Tobradex] 12/31/2020 12:00:00 AM NABIL GARCIA (Gavin Molina MD [facility]) Dexamethasone 0.001 MG/MG / Tobramycin 0 .003 MG/MG Ophthalmic Ointment [Tobradex] 03/08/2020 12:00:00 AM NABIL GARCIA (Gavin Molina MD [facility])
--- OUTSIDE RECORDS SUMMARY | 2021-08-28 16:07 | CCD | Continuity of Care Document ---
Author Author Valeria HICKS [place] Organization Unknown Address [address] [place] [address] [place] [address] Phone [phone] Care Team Providers Care Green Building Design Specialist Name Role Phone Rosmery Boggs DO AUT[employer]M [phone] Problems Description No Information Available Social History Type Date Description Comments Sex Unknown ETOH Use Drinks Alcoholic Beverages Occas ionally Tobacco Use Start: Unknown No Tobacco Use Start: Unknown Patient has never smoked Allergies, Adverse Reactions, Alerts Description No Known Drug Allergies Medications Active Medications SIG Qnty Indications Ordering Provide r Date Metformin HCL 1000mg Tablets out x 1-2 weeks 3 every day Unknown Wellbutrin SR 150mg Tablets ER 12H R 1 by mouth every am F41.1 Unknown Lexapro 5mg Tablets take o ne daily F41.1 Unknown Estradiol Unknown Valtrex 1gm Tablets 1 tab by mouth three times a day for 7 days Unknown 0 Immunizations Description No Information Available Vital Signs Date Vital Result Comment 06/05/2019 2:33pm BP Systolic 130 mmHg BP Diastolic 82 mmHg Heart Rate 106 /min Respiratory Rate 18 /min O2 % BldC Oximetry 95 % Body Temperature 99.0 F Weight 170.00 lb Height 64 inches 5'4" BMI (Body Mass Index) 29.2 kg/m2 Pain Level 6 03/26/2019 2:46pm BP Systolic 137 mmHg BP Diastolic 91 mmHg Heart Rate 76 /min Respiratory Rate 20 /min O2 % BldC Oximetry 98 % Body Temperature 98.9 F Weight 170.00 lb Height 64 inches 5'4" BMI (Body Mass Index) 29.2 kg/m2 Pain Level 5 Results Description No Information Available Procedures Description No Information Available Medical Devices Description No Information Available Encounters Description No Information Available Assessments Date Code Description Provider 06/09/2021 Z20.828 Contact with and (carias spected) exposure to other viral communicable diseases ANGELA Art Plan of Treatment No Information Available Functional Status Description No Information Available Mental Status Description No Information Available Referrals Description No Information Available
--- OUTSIDE RECORDS SUMMARY | 2021-08-28 16:07 | CCD | Continuity of Care Document ---
Author Author Valeria RODRIGUEZ PA Organization Unknown Address [address] [place] [address] [address] [place] [address] Phone [phone] Care Team Providers Care Cigar Head Piercer Name Role Phone Rosmery Boggs D.O. AUTM [phone] Bartolo Alston D.P.M. AUTM [phone] Problems Active Problems Provider Date Genital [...] 1 tab by mouth daily, istop #: [id number] 30caps F90.0 Mary Carmen MistryO. 05/06/2021 Montelukast [...] every day as needed 90tabs L70.8 Mary aCrmen ArmijoOMaxx 03/08/2018 Metformin HCL ER 500mg Tablets ER 24HR Take Two Tablets By Mouth Twice A Day With Meals 360tabs Jyoti Mistry.OMaxx 10/28/2017 Valacyclovir HCL 1gm Tablets take one tablet by mouth every day 90tabs Jyoti Mistry.O. Bupropion Hydrochloride ER (SR) 150mg Tablets ER 12HR Take One Tablet By Mouth Every Day 90tabs Mary Carmen MistryO. CDB Oil daily Unknown Probiotic [id number] Capsules Unknown History Medications Vyvanse 40mg Capsules 1 tab by mouth daily, istop #: [id number] 30caps F90.0 Mary Carmen MistryO. 01/24/2021 - 05/06/2021 Immunizations Description No Information Available Vital Signs Date Vital Result Comment 06/25/2021 3:51pm BP Systolic 126 mmHg BP Diastolic 74 mmHg Height 63.5 inches 5'3.50" Heart Rate 70 /min Respiratory Rate 18 /min Body Temperature 98.2 F O2 % BldC Oximetry 99 % Darragh Body Weight 115 lb 06/04/2021 8:08am BP Systolic 132 mmHg BP Diastolic 72 mmHg Height 63.5 inches 5'3.50" Weight 175.00 lb BMI (Body Mass Index) 30.5 kg/m2 Heart Rate 96 /min Respiratory Rate 18 /min Body Temperature 98.2 F O2 % BldC Oximetry 97 % Darragh Body Weight 115 lb Results Description No Information Available Procedures Date Code Description Status 06/25/2021 55668 Office/Outpatient Established Lo w MDM 20-29 Min Completed 06/04/2021 78721 Office/Outpatient Established Mo d MDM 30-39 Min Completed 01/24/2021 32789 Office/Outpatient Established Mo d MDM 30-39 Min Completed Medical Devices Description No Information Available Encounters Type Date Location Provider Dx Diagnosis Office Visit 06/25/2021 3:40p [facility] ANGELA Luong J01.00 Acute maxillary sinusitis, u nspecified Office Visit 06/04/2021 8:00a [facility] ANGELA Luong 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 at [facility] Functional Status Description No Information Available Mental Status Description No Information Available Referrals Description No Information Available
--- OUTSIDE RECORDS SUMMARY | 2021-08-28 16:07 | CCD | Continuity of Care Document ---
Author Author Valeria HICKS [place] Organization Unknown Address [address] [place] [address] [place] [address] Phone [phone] Care Team Providers Care Explosives Detonator Name Role Phone Rosmery Boggs DO AUTM [phone] [employer] [phone] Problems Description No Information Available Social History [...] Available Encounters Description No Information Available Assessments Description No Information Available Plan of Treatment No Information Available Functional Status Description No Information Available Mental Status Description No Information Available Referrals Description No Information Available
--- OUTSIDE RECORDS SUMMARY | 2021-08-28 16:07 | CCD | Continuity of Care Document ---
Author Author Valeria RODRIGUEZ PA Organization Unknown Address [id number] [place] [address] [address] [place] [address] Phone [phone] Care Team Providers Care Opto Mechanical Technician Name Role Phone Rosmery Boggs D.O. AUTM Bartolo Alston D.P.M. AUTM Problems Active Problems Provider Date Genital herpes [...] SIG Qnty Indications Ordering Provide r Date Vyvanse 30mg Capsules 1 tab by mouth daily, istop #: [id number] 30caps F90.0 Rosmery Boggs D.O. 05/06/2021 Montelukast Sodium 10mg Tablets 1 by mouth every day 30tabs R05 Rosmery Boggs D.OMaxx 01/24 Ventolin HFA 108(90Base) mcg/Act A erosol 2 puffs every 4 hours shortness of breath or wheezing 8gm R06.00 Mary Carmen PaganOMaxx 12/16/[address] 1 by mouth every day 90caps R10.13 Mary Carmen MistryOMaxx 02/15 Spironolactone 25mg Tablets take one tablet by mouth every day as needed 90tabs L70.8 Mary Carmen ArmijoOMaxx 03/08/2018 Metformin HCL ER 500mg Tablets ER 24HR Take Two Tablets By Mouth Twice A Day With Meals 360tabs Mary Carmen MistryOMaxx 10/28/2017 Valacyclovir HCL 1gm Tablets take one tablet by mouth every day 90tabs Mary Carmen MistryOMaxx Bupropion Hydrochloride ER (SR) 150mg Tablets ER 12HR Take One Tablet By Mouth Every Day 90tabs Mary Carmen MistryOMaxx CDB Oil daily Unknown Probiotic [id number] Capsules Unknown History Medications Vyvanse 40mg Capsules 1 tab by mouth daily, istop #: [id number] 30caps F90.0 Jyoti Mistry.O. 01/24/2021 - 05/06/2021 Vyvanse 30mg Capsules 1 tab by mouth daily, istop #: [id number] 30caps F90.0 Jyoti Mistry.O. 12/06/2020 - 01/24/2021 Immunizations Description No Information Available Vital Signs Date Vital Result Comment 06/04/2021 8:08am BP Systolic 132 mmHg BP Diastolic 72 mmHg Height 63.5 inches 5'3.50" Weight 175.00 lb BMI (Body Mass Index) 30.5 kg/m2 Heart Rate 96 /min Respiratory Rate 18 /min Body Temperature 98.2 F O2 % BldC Oximetry 97 % [place] Body Weight 115 lb 01/24/2021 3:07pm BP Systolic 140 mmHg BP Diastolic 84 mmHg Height 63.5 inches 5'3.50" Weight 183.00 lb BMI (Body Mass Index) 31.9 kg/m2 Heart Rate 87 /min Body Temperature 98.3 F O2 % BldC Oximetry 97 % [place] Body Weight 115 lb Results Test Acquired Date Facility Test Result H/L Range Note Lipid Panel 12/12/[address] [address] [phone] Triglycerides Level 120 mg/dL Normal <150 Cholesterol Level 291 mg/dL High <200 HDL Cholesterol 66 mg/dL Normal >40 LDL Cholesterol 201 mg/dL High <100 Non-HDL-C 225 mg/dL Normal Cholesterol Risk Ratio 4.409 Normal <5 Hemoglobin A1c 12/12/[address] [address] [phone] Hemoglobin A1c 5.1 % Normal 1 Estimated Average Glucose 100 mg/dL Normal 60-110 Comprehensive Metabolic Profil 12/12/[address] [address] [phone] Glucose, Fasting 89 mg/dL Normal 70-100 Blood Urea Nitrogen 15 mg/dL Normal 7-18 Creatinine For GFR 0.64 mg/dL Normal 0.55-1.30 Glomerular Filtration Rate > 60.0 Normal >58 2 Sodium Level 142 mEq/L Normal 136-145 Potassium Serum 4.7 mEq/L Normal 3.5-5.1 Chloride Level 108 mEq/L High 98-107 Carbon Dioxide Level 30 mEq/L Normal 21-32 Anion Gap 4 mEq/L Low 8-16 Calcium Level 9.4 mg/dL Normal 8.5-10.1 Ast/Sgot 7 U/L Normal 7-37 Alt/SGPT 10 U/L Low 12-78 Alkaline Phosphatase 70 U/L Normal 45-117 Bilirubin,Total 0.3 mg/dL Normal 0.2-1.0 Total Protein 7.3 GM/DL Normal 6.4-8.2 Albumin 3.9 GM/DL Normal 3.2-5.2 Albumin/Globulin Ratio 1.1 Low 1.2-2.2 FT4&TSH Panel 12/12/[address] [address] [phone] Thyroid Stimulating Hormone 1.160 uIU/ML Normal 0. 358-3.740 Free T4 1.34 ng/dL Normal 0.76-1.46 CBC With Differential 12/12/[address] [address] [phone] White Blood Count 6.0 10 Normal 4.0-10.0 Red Blood Count 4.68 10 Normal 4.00-5.40 Hemoglobin 14.3 g/dL Normal 12.0-15.5 Hematocrit 44.1 % Normal 36.0-47.0 Mean Corpuscular Volume 94.2 fl Normal 80.0-96.0 Mean Corpuscular Hemoglobin 30.6 pg Normal 27.0-33.0 Mean Corpuscular HGB Conc 32.4 g/dL Normal 32.0-36.5 Red Cell Distribution Width 12.5 % Normal 11.5-14.5 Platelet Count, Automated 298 10 Normal 150-450 Neutrophils % 49.5 % Normal 36.0-66.0 Lymph % 37.4 % Normal 24.0-44.0 [place] % 8.0 % Normal 2.0-8.0 Eos % 3.7 % High 0.0-3.0 Baso % 1.2 % High 0.0-1.0 Immature Granulocyte % 0.2 % Normal 0-3.0 Nucleated Red Blood Cell % 0.0 % Normal 0-0 Neutrophils # 3.0 10 Normal 1.5-8.5 Lymph # 2.2 10 Normal 1.5-5.0 [place] # 0.5 10 Normal 0.0-0.8 Eos # 0.2 10 Normal 0.0-0.5 Baso # 0.1 10 Normal 0.0-0.2 1 REFERENCE RANGES: <=5.6% NORMAL 5.7-6.4% SUGGESTS IMPAIRED GLUCOSE META BOLISM/PREDIABETIC >= 6.5% ABNORMAL 2 Units are mL/min/1.73 m2 Chronic Kidney Disease Staging per NKF: Stage I & II GFR >=60 Normal to Mildly Decreased Stage III GFR 30-59 Moderately Decreased Stage IV GFR 15-29 Severely Decreased Stage V GFR <15 Very Little GFR Left ESRD GFR <15 on AP OPERATOR Procedures Date Code Description Status 01/24/2021 68023 Office/Outpatient Established Mo d MDM 30-39 Min Completed 12/18/2020 94396 Office/Outpatient Established Lo w MDM 20-29 Min Completed 12/06/2020 49698 Office/Outpatient Established Lo w MDM 20-29 Min Completed Medical Devices Description No Information Available Encounters Type Date Location Provider Dx Diagnosis Office Visit 01/24/2021 3:00p [facility] ANGELA Luong 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 12/18/2020 E78.2 Mixed hyperlipidemia Rosmery Bal D.O. 12/18/2020 E28.2 Polycystic ovarian syndrome Rosmery Boggs D.O. 12/18/2020 Z79.899 Other terminal operations supervisor (current) drug t herapy Rosmery Boggs D.O. 12/18/2020 Z79.84 [facility] (current) use of oral hypoglycemic drugs Rosmery Boggs D.O. 12/18/2020 Z79.890 Hormone replacement therapy Rosmery Boggs D.O. 12/18/2020 F32.5 Major depressive disorder, singl e episode, in full remission Rosmery Boggs D.O. 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 at [facility] 06/04/2021 - ANGELA Luong* F90.0 Attention-deficit hyperactivity disorder, predominantly inattentive type* Comments:* Symptoms improved with current medication, and we'll make no changes today. Call for any concerns. * E28.2 Polycystic ovarian syndrome* Comments:* You have lost weight compared with last time. Continue your current medications as prescribed. * Follow up:* [address] Pablo for preventative. * E78.2 Mixed hyperlipidemia* Comments:* We will check labs before you return. * F41.1 Generalized anxiety disorder* Comments:* Slightly worse as of late. We will continue management per current medications for the time being. Call for any concerns. Functional Status Description No Information Available Mental Status Description No Information Available Referrals Description No Information Available
[2021-08-28] MEDS ORDERED: BUPR150T5 (16:14)
[2021-08-28] MEDS ORDERED: VALA1TAB5 (16:14)
[2021-08-28] MEDS ORDERED: FLUO1CRE2 (16:14)
[2021-08-28] MEDS ORDERED: METF-838 (16:14)
[2021-08-28] MEDS ORDERED: MONT10TA10 (16:14)
[2021-08-28] MEDS ORDERED: CEFD1CAP8 (16:14)
[2021-08-28] MEDS ORDERED: VYVA30CA4 (16:14)
--- NOTE | 2021-08-28 16:53 | REP ---
INDICATION: CHEST PAIN. COMPARISON: 05/24/2006. TECHNIQUE: Single portable AP view of the chest was performed. FINDINGS: There is no acute infiltrate or pulmonary edema. Lungs are clear. The heart is not significantly enlarged. The mediastinal silhouette is unremarkable. The visualized osseous structures are intact. IMPRESSION: No acute pulmonary disease. <Electronically signed by Dave Tobin > 08/28/21 [id number]
[2021-08-28 16:56] LABS: BASO # 0.1 10^3/uL (0.0-0.2); BASO % 0.8 % (0.0-1.0); EOS # 0.1 10^3/uL (0.0-0.5); EOS % 1.5 % (0.0-3.0); HEMATOCRIT 45.6 % (36.0-47.0); HEMOGLOBIN 14.9 g/dl (12.0-15.5); LYMPH # 2.8 10^3/uL (1.5-5.0); LYMPH % 32.3 % (24.0-44.0); MEAN CORPUSCULAR HEMOGLOBIN 30.3 pg (27.0-33.0); MEAN CORPUSCULAR HGB CONC 32.7 g/dl (32.0-36.5); MEAN CORPUSCULAR VOLUME 92.7 fl (80.0-96.0); MONO # 0.5 10^3/uL (0.0-0.8); MONO % 5.4 % (2.0-8.0); NEUTROPHILS # 5.1 10^3/uL (1.5-8.5); NEUTROPHILS % 59.6 % (36.0-66.0); PLATELET COUNT, AUTOMATED 360 10^3/uL (150-450); RED BLOOD COUNT 4.92 10^6/uL (4.00-5.40); WHITE BLOOD COUNT 8.5 10^3/uL (4.0-10.0)
[2021-08-28 17:09] LABS: ALBUMIN 4.3 GM/DL (3.2-5.2); ALT/SGPT 15 U/L (12-78); BILIRUBIN,DIRECT 0.2 MG/DL (0.0-0.2); BILIRUBIN,TOTAL 0.6 MG/DL (0.2-1.0); BLOOD UREA NITROGEN 9 MG/DL (7-18); CALCIUM LEVEL 9.6 MG/DL (8.5-10.1); CARBON DIOXIDE LEVEL 31 MEQ/L (21-32); CHLORIDE LEVEL 102 MEQ/L (98-107); GLOMERULAR FILTRATION RATE > 60.0 (>58); GLUCOSE, FASTING 94 MG/DL (70-100); LIPASE 186 U/L (73-393); POTASSIUM SERUM 3.6 MEQ/L (3.5-5.1); SODIUM LEVEL 140 MEQ/L (136-145); TOTAL PROTEIN 8.8 GM/DL (6.4-8.2)
[2021-08-28] MEDS ORDERED: ISOVUE-370 76% 100ML VIAL As Ordered ONE (18:02)
--- NOTE | 2021-08-28 18:42 | REPVR ---
PROCEDURE INFORMATION: Exam: CTA Chest With Contrast Exam date and time: 08/28/2021 6:14 PM Age: 46 years old Clinical indication: Pain; Chest pressure; Additional info: Chest pain TECHNIQUE: Imaging protocol: Computed tomographic angiography of the chest with contrast. 3D rendering (Not supervised by radiologist): MIP and/or 3D reconstructed images were created by the technologist. Radiation optimization: All CT scans at this facility use at least one of these dose optimization techniques: automated exposure control; mA and/or kV adjustment per patient size (includes targeted exams where dose is matched to clinical indication); or iterative reconstruction. Contrast material: ISOVUE 370; Contrast volume: 75 ml; Contrast route: INTRAVENOUS (IV); COMPARISON: CR PORTABLE CHEST X-RAY 08/28/2021 4:28 PM FINDINGS: Pulmonary arteries: There are no pulmonary emboli. Aorta: There is no aortic dissection or aneurysm. Lungs: Unremarkable. No consolidation. No masses. Pleural spaces: Unremarkable. No pneumothorax. No pleural effusion. Heart: Unremarkable. No cardiomegaly. No pericardial effusion. Lymph nodes: Unremarkable. No enlarged lymph nodes. Bones/joints: Unremarkable. No acute fracture. Soft tissues: Unremarkable. IMPRESSION: 1. There is no aortic dissection or aneurysm. 2. There are no pulmonary emboli. 3. No acute pulmonary parenchymal abnormalities. Electronically signed by: Keshawn Wilsl On 08/28/2021 18:41:51 PM
--- OUTSIDE RECORDS SUMMARY | 2021-08-28 18:52 | CCD ---
Author Author [facility] Organization [facility] Address Unknown Phone Unavailable Care Team Providers Care Support Specialist Name Role Phone Castro, Lisset NURSERY TEACHER Unavailable Unavailable Castro, Lisset NURSERY TEACHER Unavailable Unavailable Castro, Lisset NURSERY TEACHER Unavailable Unavailable Castro, Lisset NURSERY TEACHER Unavailable Unavailable Castro, Lisset NURSERY TEACHER Unavailable Unavailable Castro, Lisset NURSERY TEACHER Unavailable Unavailable Castro, Lisset NURSERY TEACHER Unavailable Unavailable Castro, Lisset NURSERY TEACHER Unavailable Unavailable Castro, Lisset NURSERY TEACHER Unavailable Unavailable Castro, Lisset NURSERY TEACHER Unavailable Unavailable Castro, Lisset NURSERY TEACHER Unavailable Unavailable Castro, Lisset NURSERY TEACHER Unavailable Unavailable Castro, Lisset NURSERY TEACHER Unavailable Unavailable Norman, D Blayne PA Unavailable [...] Unavailable KIMBERLY-ANJU, ROSMERY DO Unavailable Unavailable KIMBERLY-ANJU, ORSMERY DO Unavailable Unavailable KIMBERLY-ANJU, ROSMERY DO Unavailable [...] Unavailable Unavailable KIMBERLY-ANJU, ROSMERY DO Unavailable Unavailable KIMBELRY-ANJU, ROMSERY DO Unavailable Unavailable KIMBERLY-ANJU, ROSMERY DO Unavailable [...] Unavailable Unavailable KIMBERLY-ANJU, ROSMERY DO Unavailable Unavailable [place], Libia MATERIALS PLANNING MANAGER Unavailable Unavailable [place], Libia MATERIALS PLANNING MANAGER Unavailable Unavailable [place], Libia MATERIALS PLANNING MANAGER Unavailable Unavailable [place], Libia MATERIALS PLANNING MANAGER Unavailable Unavailable [place], Libia MATERIALS PLANNING MANAGER Unavailable Unavailable [place], Libia MATERIALS PLANNING MANAGER Unavailable Unavailable [place], Libia MATERIALS PLANNING MANAGER Unavailable Unavailable [place], Libia MATERIALS PLANNING MANAGER Unavailable Unavailable [place], Libia MATERIALS PLANNING MANAGER Unavailable Unavailable [place], Libia MATERIALS PLANNING MANAGER Unavailable Unavailable [place], Libia MATERIALS PLANNING MANAGER Unavailable Unavailable [place], Libia MATERIALS PLANNING MANAGER Unavailable Unavailable [place], Libia MATERIALS PLANNING MANAGER Unavailable Unavailable [place], Libia MATERIALS PLANNING MANAGER Unavailable Unavailable [place], Libia MATERIALS PLANNING MANAGER Unavailable Unavailable [place], Libia MATERIALS PLANNING MANAGER Unavailable Unavailable [place], Libia MATERIALS PLANNING MANAGER Unavailable Unavailable [place], Libia MATERIALS PLANNING MANAGER Unavailable Unavailable [place], Libia MATERIALS PLANNING MANAGER Unavailable Unavailable [place], Libia MATERIALS PLANNING MANAGER Unavailable Unavailable [place], Libia MATERIALS PLANNING MANAGER Unavailable Unavailable [place], Libia MATERIALS PLANNING MANAGER Unavailable Unavailable [place], Libia MATERIALS PLANNING MANAGER Unavailable Unavailable [place], Libia MATERIALS PLANNING MANAGER Unavailable Unavailable [place], Libia MATERIALS PLANNING MANAGER Unavailable Unavailable [place], Libia MATERIALS PLANNING MANAGER Unavailable Unavailable [place], Libia MATERIALS PLANNING MANAGER Unavailable Unavailable [place], Libia MATERIALS PLANNING MANAGER Unavailable Unavailable [place], Libia MATERIALS PLANNING MANAGER Unavailable Unavailable [place], Libia MATERIALS PLANNING MANAGER Unavailable Unavailable [place], Libia MATERIALS PLANNING MANAGER Unavailable Unavailable [place], Libia MATERIALS PLANNING MANAGER Unavailable Unavailable [place], Libia MATERIALS PLANNING MANAGER Unavailable Unavailable [place], Libia MATERIALS PLANNING MANAGER Unavailable Unavailable [place], Libia MATERIALS PLANNING MANAGER Unavailable Unavailable [place], Libia MATERIALS PLANNING MANAGER Unavailable Unavailable Rydberg, Melanie PA Unavailable Unavailable [...] Alonso MD, FACS Unavailable Unavailable Hegard, Melanie MATERIALS PLANNING MANAGER Unavailable Unavailable Hegard, Melanie MATERIALS PLANNING MANAGER Unavailable Unavailable Hegard, Melanie MATERIALS PLANNING MANAGER Unavailable Unavailable Hegard, Melanie MATERIALS PLANNING MANAGER Unavailable Unavailable Hegard, Melanie MATERIALS PLANNING MANAGER Unavailable Unavailable Hegard, Melanie MATERIALS PLANNING MANAGER Unavailable Unavailable Hegard, Melanie MATERIALS PLANNING MANAGER Unavailable Unavailable Hegard, Melanie MATERIALS PLANNING MANAGER Unavailable Unavailable Hegard, Melanie MATERIALS PLANNING MANAGER Unavailable Unavailable Hegard, Melanie MATERIALS PLANNING MANAGER Unavailable Unavailable Hegard, Melanie MATERIALS PLANNING MANAGER Unavailable Unavailable Hegard, Melanie MATERIALS PLANNING MANAGER Unavailable Unavailable Hegard, Melanie MATERIALS PLANNING MANAGER Unavailable Unavailable Hegard, Melanie MATERIALS PLANNING MANAGER Unavailable Unavailable Hegard, Melanie MATERIALS PLANNING MANAGER Unavailable Unavailable Hegard, Melanie MATERIALS PLANNING MANAGER Unavailable Unavailable Hegard, Melanie MATERIALS PLANNING MANAGER Unavailable Unavailable Re-disclosure Warning The records that [...] is protected by Article 27-F of the [facility] Public Health law. If you continue you may have access to information: Regarding HIV / AIDS; Provided by facilities licensed or operated by the [facility] Office of Mental Health; or Provided by the [facility] Office for People With Developmental Disabilities. If such information is present, then the following [facility] mandated warning applies: This information [...] law may result in a fine or snf sentence or both. A general authorization for the release of medical or other information is NOT sufficient authorization for further disc losure. Allergies and Adverse Reactions Type Description Substance Reaction Status Data Source(s ) Allergy to substance No Known Allergies No known allergies (situation ) [facility] (Gavin Molina MD [facility]) Allergy to substance No Known Allergies No known allergies (situation ) [facility] (Gavin Molina MD [facility]) Allergy to substance No Known Allergies No known allergies (situation ) [facility] (Gavin Molina MD [facility]) Family History Family Member Name Family Member Gender Family Member Status Date o f Status Description Data Source(s) Unknown Unknown Problem [facility] ([facility], [facility]) m Unknown Male Problem MED[facility] ([facility]) Unknown Male Problem MEDENT ([facility]) Unknown Unknown Problem [facility] ([facility], ) Encounters Encounter Providers Location Date Indications Data Source(s ) Outpatient [address] [facility], [facility] [id number] 08/21/2021 12:00:00 AM EST eCW1 ([facility]) Outpatient Attender: Melanie Portillo [facility] Main Office 1 10/20/2020 11:45:00 AM EST [facility] ([facility]) Outpatient Attender: Lisset Johnston carmelo 08/06/2021 03:30:00 PM EST MED[facility] ([facility]) Outpatient Attender: Melanie Portillo [facility] Main Office 1 10/05/2020 02:00:00 PM EST [facility] ([facility]) Outpatient Attender: Blayne MILLER [facility] 06/25/2021 03:40:00 PM EDT MED[facility] ([facility]) Outpatient Attender: Blayne MILLER [facility] 06/04/2021 08:00:00 AM EDT [facility] ([facility]) Outpatient Attender: Li Luna [facility] Main Office 04/03/2021 10:15:00 AM EDT [facility] ([facility]) Outpatient<td ID="encounterTypeDescripti onID0">10 Month Follow-Up</td><td>Gavin Moy MD, FACS</td><td>Gavin Moy MD [facility]</td><td>02/05/2021</td><td>9:41AM</td><td>10:41AM</td><td><content ID="encounterDiagnosisID0-0">Blepharitis Ulcerative</content>, <content ID="encounterDiagnosisID0-1">Blepharitis Squamous</content>, <content ID="encounterDiagnosisID0-2">Dry Eye Syndrome</content>, <content ID="encounterDiagnosisID0-3">Vitreous Disorders Degeneration</content></td> Attender: Gavin Molina MD, FACS Gavin Moy MD [facility] 02/05/2021 09:41:0 0 AM EDT - 02/05/2021 10:41:00 AM EDT Vitreous Disorders DegenerationDry Eye SyndromeBlepharitis SquamousBlepharitis UlcerativeVitreous Disorders DegenerationDry Eye SyndromeBlepharitis SquamousBlepharitis UlcerativeVitreous Disorders DegenerationDry Eye SyndromeBlepharitis SquamousBlepharitis Ulcerative GERARD (Gavin Molina MD [facility]) Vitreous Disorders Degeneration Dry Eye Syndrome 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 Dry Eye Syndrome 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 Dry Eye Syndrome Blepharitis Squamous Blepharitis Ulcerative Outpatient Attender: Blayne MILLER [facility] 01/24/2021 03:00:00 PM EDT MED[facility] ([facility]) Outpatient Attender: ROSMERY ANG DO [facility] 12/18/2020 04:00:00 PM EDT MEDENT ([facility]) Outpatient Attender: Blayne MILLER [facility] 12/06/2020 03:40:00 PM EDT MEDENT ([facility]) Outpatient Attender: Melanie MILLER 10/26/2020 08:00:00 AM [facility] Outpatient Attender: Melanie MILLER 09/28/2020 01:00:00 PM [facility] Outpatient 09/24/2020 11:44:43 AM EST 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 COVID-19 VACCINE Moderna 10/26/2020 12:00:00 AM EST completed [facility] Vaccine Series Complete: YESThis Data wa s Submitted to [facility] [employer]. COVID-19 VACCINE Moderna 09/28/2020 12:00:00 AM EST completed [facility] Vaccine Series Complete: NOThis Data was Submitted to [facility] [employer]. Medications Medication Brand Name Start Date Product [...] 1.0 {application} active Fluorouracil 5 % eCW1 ([facility]) 30 mg 08/21/2021 12:00:00 AM EST capsule [...] 08/06/2021 12:00:00 AM EST ORAL active MED[facility] ([facility]) 50 mcg/actuation 08/06/2021 [...] CAPSULE BY MOUTH EVERY DAY * MANDI HURTADO DAILY DOSE = 1 SOLD: 07/17/2021 Nielsen [...] propionate 0.05 MG/ACTUAT Metered Dose Rubio al Saxon 50 mcg/actuation FLUTICASONE PROPIONATE 06/14/2021 12:00:00 AM [...] [place]lop[place]x 04/03/2021 12:00:00 AM EDT active MEDENT ([facility]) 0.77 % 04/03/2021 12:00:00 AM [...] MG Oral Tablet [facility] (Gavin Molina MD [facility]) lisdexamfetamine dimesylate 10 MG Oral C apsule [Vyvanse] Vyvanse 10 MG Oral Capsule Vyvanse 10 MG Oral Capsule 02/05/2021 12:00:00 AM EDT 1 active lisdexamfetamine dimesylate 10 MG Oral C apsule [Vyvanse] [facility] (Gavin Molina MD [facility]) montelukast 10 MG Oral Tablet MONTELUKAST SODIUM [...] 01/24/2021 12:00:00 AM EDT ORAL active MEDENT ([facility]) 30 mg 01/07/2021 12:00:00 AM EDT capsule 30 TAKE ONE CAPSULE BY MOUTH DAILY MAXIMUM DAILY DOSE = 1 CAPSULE TAKE ONE CAPSULE BY MOUTH DAILY MAXIMUM DAILY DOSE = 1 CAPSULE SOLD: 01/09/2021 [facility] Dexamethasone 0.001 MG/MG / Neomycin 0.0 035 MG/MG / Polymyxin B 10 UNT/MG Ophthalmic Ointment Mqqcoutf-Tqthwsxub-Aqlkbfls 3.5-82641-2.1 Ophthalmic Ointment Vglzqdzs-Pjgqdourt-Jvwcmrrv 3.5-92409-5.1 Ophthalmic O intment 01/04/2021 12:00:00 AM EDT active dexamethasone 0.001 MG/MG / neomycin 0.0035 MG/MG / polymyxin B 10 UNT/MG Ophthalmic Ointment [facility] (Gavin Molina MD [facility]) Dexamethasone 0.001 MG/MG / Neomycin 0.0 035 [...] Ophthalmic Ointment [Tobradex] [facility] (Gavin Molina MD [facility]) 30 mg 12/06/2020 12:00:00 AM EDT capsule [...] Ophthalmic Ointment [Tobradex] [facility] (Gavin Molina MD [facility]) Insurance Providers Payer name Policy type / Coverage type Policy ID Covered constitution party ID Covered constitution party's relationship to jolly Policy Jolly Plan Information [facility] [id number] SP [id number] [facility] [id number] SP [id number] [facility] [id number] SP [id number] [facility] [id number] Jessi [id number] [facility] H [id number] Self [id number] [facility] HEALTH CARE [id number] SP [id number] [employer] Commercial [id number] Self [id number] MVP Commercial [id number] Self [id number] MVP Commercial [id number] Self [id number] MVP Commercial [id number] Self [id number] MVP Commercial [id number] Self [id number] P HEALTH CARE [id number] [facility] [id number] MVP Health Maintenance Organization (HMO) [id number] 1 [id number] Family Dependent [id number] MVP Commercial [id number] Self [id number] MVP Commercial [id number] Self [id number] MVP Health Maintenance Organization (HMO) [id number] 1 [id number] Family Dependent [id number] MVP Health Maintenance Organization (HMO) [id number] 1 [id number] Family Dependent [id number] [employer] HEALTH CARE O [id number] S [id number] MVP Commercial [id number] Self [id number] MVP Commercial [id number] Self [id number] MVP Commercial [id number] Self MVP PI PI MVP Health Plan [facility] Other 0 [id number] Self 0 MVP Health Plan [facility] Other 0 [id number] Self 0 MVP Health Plan [facility] Other 0 [id number] Self 0 MVP HEALTH CARE O [id number] P [id number] SELF PAY UNAVAILABLE S UNAVAILA BLE SELF PAY UNAVAILABLE S UNAVAILA BLE Problems, Conditions, and Diagnoses Code Display Name Description Problem Type Effective Dates Data Source(s) Z23 Encounter for immunization ENCOUNTER FOR IMMUNIZATION Diagnosis 10/26/2020 08:00:00 AM [facility] C44.01 [id number] Basal cell carcinoma of lower lip Problem 08/21/2021 12:00:00 AM EST [facility] ([facility]) Surgeries/Procedures Procedure Description Date Indications Data Source(s) OFFICE OUTPATIENT VISIT 15 MINUTES 08/20/2021 12:00:00 AM EST MED[facility] ([facility]) OFFICE OUTPATIENT VISIT 15 MINUTES 08/06/2021 12:00:00 AM EST MEDENT ([facility]) OFFICE OUTPATIENT VISIT 25 MINUTES 08/05/2021 12:00:00 AM EST MEDENT ([facility]) OFFICE OUTPATIENT VISIT 15 MINUTES 06/25/2021 12:00:00 AM EDT MEDENT ([facility]) OFFICE OUTPATIENT VISIT 25 MINUTES 06/04/2021 12:00:00 AM EDT MEDENT ([facility]) Shave Biopsy Of Skin, Single Lesion 04/03/2021 12:00:0 0 AM EDT MEDENT ([facility]) OFFICE OUTPATIENT VISIT 25 MINUTES 04/03/2021 12:00:00 AM EDT MED[facility] ([facility]) Intermediate Eye Exam Established Patient Intermediate Eye Exam Established Patient 02/05/2021 12:00:00 AM EDT [facility] (Toan Molina MD [facility]) Surgical / procedural history Hysterect toir 2018, Skin Cancer removal (BCC/Squamous) - 2014 (hand, nose, back), IVF 2014 Surgical / procedural history Hysterectomy 2018, Skin Cancer removal (BCC/Squamous) - 2014 (hand, nose, back), IVF 201402/05/2021 12:00:00 AM EDT G[facility] (Toan Molina MD [facility]) Laser assisted in situ keratomileusis (procedure) Hist ory of LASIK surgery of both corneas 199702/05/2021 12:00:00 AM EDT [facility] (Toan Molina MD [facility]) Intermediate Eye Exam Established Patient Intermediate Eye Exam Established Patient 02/05/2021 12:00:00 AM EDT [facility] (Toan Molina MD [facility]) OFFICE OUTPATIENT VISIT 25 MINUTES 01/24/2021 12:00:00 AM EDT [facility] ([facility]) OFFICE OUTPATIENT VISIT 15 MINUTES 12/18/2020 12:00:00 AM EDT [facility] ([facility]) OFFICE OUTPATIENT VISIT 15 MINUTES 12/06/2020 12:00:00 AM EDT [facility] ([facility]) Results ID Date Data Source [id number] 08/10/2021 12:00:00 AM EST [facility] Name Value Range Interpretation Code Description Data Gladis rce(s) Supporting Document(s) SARS-CoV2 Rapid Antigen Negative [facility] This lab was ordered by [facility] and reported by [facility]. ID Date Data Source [id number] 08/06/2021 12:00:00 AM EST [facility] Name Value Range Interpretation Code Description Data Gladis rce(s) Supporting Document(s) SARS-CoV2 Rapid Antigen Negative [facility] This lab was ordered by [facility] and reported by [facility]. ID Date Data Source [id number] 04/03/2021 10:43:00 AM EDT MEDENT ([facility]) Name Value Range Interpretation Code Description Data Gladis rce(s) Supporting Document(s) Laboratory test finding (navigational concept) Laboratory test result MEDENT ([facility]) Refer to Dr Griffin letter awaiting sign ature LW 04/13/21 photo emailed, letter sent, awaiting appt LW 04/17/21 appt 04/17, pt is aware LW Laboratory test finding (navigational concept) Laboratory test result [facility] ([facility]) Refer to Dr Griffin letter awaiting sign ature LW 04/13/21 photo emailed, letter sent, awaiting appt LW 04/17/21 appt 04/17, pt is aware LW ID Date Data Source [id number] 12/12/2020 08:00:00 AM EDT MED[facility] ([facility]) Name Value Range Interpretation Code Description Data Gladis rce(s) Supporting Document(s) White Blood Count 6.0 10 4.0-10.0 Normal (applies to non-numeri c results) [facility] ([facility]) Red Blood Count 4.68 10 4.00-5.40 Normal (applies to non-numeric results) [facility] ([facility]) Hemoglobin 14.3 g/dL 12.0-15.5 Normal (applies to non-numeric resul ts) [facility] ([facility]) Mean Corpuscular Volume 94.2 fl 80.0-96.0 Normal ( applies to non-numeric results) [facility] ([facility]) Hematocrit 44.1 % 36.0-47.0 Normal (applies to non-numeric resul ts) [facility] ([facility]) Mean Corpuscular Hemoglobin 30.6 pg 27.0-33.0 Norm al (applies to non-numeric results) [facility] ([facility]) Red Cell [...] non-numeric results) [facility] ([facility]) Cherry % 8.0 % 2.0-8.0 Normal (applies to [...] resul ts) [facility] ([facility]) Cherry # 0.5 10 0.0-0.8 Normal (applies to non-numeric resul ts) [facility] ([facility]) Eos # 0.2 10 0.0-0.5 Normal (applies to non-numeric resul ts) [facility] ([facility]) Baso # 0.1 10 0.0-0.2 Normal (applies to non-numeric resul ts) [facility] ([facility]) ID Date Data Source [id number] 12/12/2020 08:00:00 AM EDT [facility] ([facility]) Name Value Range Interpretation Code Description Data Gladis rce(s) Supporting Document(s) Thyroid Stimulating Hormone 1.160 uIU/ML 0.358-3.740 Norm al (applies to non- numeric results) [facility] ([facility]) Free T4 1.34 ng/dL 0.76-1.46 Normal (applies to non-numeric resul ts) [facility] ([facility]) ID Date Data Source [id number] 12/12/2020 08:00:00 AM EDT [facility] ([facility]) Name Value Range Interpretation Code Description Data Gladis rce(s) Supporting Document(s) Glucose, Fasting 89 mg/dL 70-100 Normal (applies to non-numeric results) [facility] ([facility]) Blood Urea Nitrogen 15 mg/dL 7-18 Normal (applies to non-nume viraj results) [facility] ([facility]) Creatinine For GFR 0.64 mg/dL 0.55-1.30 Normal (applies to non -numeric results) [facility] ([facility]) Glomerular Filtration Rate Laboratory test result Normal (applies to non- numeric results) [facility] ([facility]) <content>Units are mL/min/1.73 m2</content>
<content></content>
<content>Chronic Kidney Disease Staging per NKF:</content>
<content></content>
<content>Stage I & II GFR >=60 Normal to Mildly Decreased</content>
<content>Stage III GFR 30- 59 Moderately Decreased</content>
<content>Stage IV GFR 15-29 Severely Decreased</content>
<content>Stage V GFR <15 Very Little GFR Left</content>
<content>ESRD GFR <15 on DECATING MACHINE OPERATOR</content>
<content></content> Sodium Level 142 meq/L 136-145 Normal (applies to non-numeric res ults) [facility] ([facility]) Potassium Serum 4.7 meq/L 3.5-5.1 Normal (applies to non-numeric results) [facility] ([facility]) Chloride Level 108 meq/L 98-107 Above high normal [facility] ([facility]) Anion Gap 4 meq/L 8-16 Below low normal [facility] ( [facility]) Carbon Dioxide Level 30 meq/L 21-32 Normal (applies to non-num pinky results) [facility] ([facility]) Calcium Level 9.4 mg/dL 8.5-10.1 Normal (applies to non-numeric re sults) [facility] ([facility]) Ast/Sgot 7 U/L 7-37 Normal (applies to non-numeric resul ts) [facility] ([facility]) Alt/SGPT 10 U/L 12-78 Below low normal [facility] ( [facility]) Alkaline Phosphatase 70 U/L 45-117 Normal (applies to non-num pinky results) [facility] ([facility]) Bilirubin,Total 0.3 mg/dL 0.2-1.0 Normal (applies to non-numeric results) [facility] ([facility]) Total Protein 7.3 GM/DL 6.4-8.2 Normal (applies to non-numeric re sults) [facility] ([facility]) Albumin 3.9 GM/DL 3.2-5.2 Normal (applies to non-numeric resul ts) [facility] ([facility]) Albumin/Globulin Ratio 1.1 1.2-2.2 Below low normal [facility] ID Date Data Source [id number] 12/12/2020 08:00:00 AM EDT MED[facility] ([facility]) Name Value Range Interpretation Code Description Data Gladis rce(s) Supporting Document(s) Hemoglobin A1c 5.1 % Normal (applies to non-numeric r esults) [facility] ([facility]) <content>REFERENCE RANGES:</content><br/ ><content></content>
<content><=5.6% NORMAL</content>
<content>5.7-6.4% SUGGESTS IMPAIRED GLUCOSE METABOLISM/PREDIABETIC</content>
<content>>= 6.5% ABNORMAL</content>
<content></content> Estimated Average Glucose 100 mg/dL 60-110 Normal (applies to non-numeric results) [facility] ([facility]) ID Date Data Source [id number] 12/12/2020 08:00:00 AM EDT [facility] ([facility]) Name Value Range Interpretation Code Description [...] [facility]) ID Date Data Source [id number] 11/21/2020 12:00:00 AM EST [facility] Rosmery Jaramillo DO Patient Name: JENNIFER [id number] Date of : 1975 1 Date of Exam:11/21/2020CHAYITO López [id number]#: Fax: [phone] EXAM: [id number] SCREENING WITH CADCLINICAL [...] read with the assistance of Ramesh Love NONO, an FDAapproved computer aided detection system for [...] rce(s) Supporting Document(s) ID Date Data Source [id number] 09/24/2020 11:56:00 AM EST [facility] ([facility]) SINUS SERIES ONE VIEW INDICATION: NASAL CONGESTION, DUNBAR COMPARISON/CORRELATION: No existing prior relevant studies are available for comparison. FINDINGS/IMPRESSION:Paranasal sinuses and mastoids are aerated. Midline nasal septum. No fracture. Professional interpretation performed at [facility] . Name Value Range Interpretation Code Description Data Gladis rce(s) Supporting Document(s) ID Date Data Source [id number] 09/24/2020 11:25:00 AM EST [facility] Name Value Range Interpretation Code Description Data Gladis rce(s) Supporting Document(s) SARS-CoV-2 by LAURENCE Not Detected [facility] This lab was ordered by [facility] [place] [facility] and reported by [facility]. ID Date Data Source [id number] 09/27/2020 02:03:00 PM EST [facility] Name Value Range Interpretation Code Description Data Gladis rce(s) Supporting Document(s) SARS COV2 SOURCE Laboratory [facility] SARS COV 2 BY PCR Laboratory [facility] Not Detected INTERPRETIVE INFORMATION: [...] In compliance with this authorization, please visit [email or web address] for more information and to access the [...] collection, transport, storage, and handling. Performed by [facility], [address] [place] [email or web address], Yris Ellison MD, Lab. Director ID Date Data Source [id number] 09/24/2020 12:00:00 AM EST [facility] Name Value Range Interpretation Code Description Data Gladis rce(s) Supporting Document(s) 2019 Novel Coronavirus RNA [facility] This lab was ordered by [facility] and reported by [facility]. ID Date Data Source [id number] 09/12/2020 12:00:00 AM EST [facility] Name Value Range Interpretation Code Description Data Gladis rce(s) Supporting Document(s) SARS-[facility]2 [facility] by [facility] and reported by Ramesh Betancourt MD. Procedure Social History Code Duration Value Status Description Data Source(s ) Smoking 08/21/2021 12:00:00 AM EST Never Smoker completed Never S moker eCW1 ([facility]) Smoking 07/22/2021 09:18:16 AM EDT Never smoked tobacco (findi ng) completed Never smoked tobacco (finding) GERARD (Gavin Molina MD [facility]) Smoking 06/04/2021 12:00:00 AM EDT Patient has never smoked co mpleted Patient has never smoked MEDENT ([facility]) Smoking 05/22/2021 07:02:38 AM EDT Never smoked tobacco (findi ng) completed Never smoked tobacco (finding) GERARD (Gavin Molina MD [facility]) Smoking 02/05/2021 10:43:02 AM EDT Never smoked tobacco (findi ng) completed Never smoked tobacco (finding) GERARD (Gavin Molina MD [facility]) Vital Signs ID Date Data Source UNK Name Value Range Interpretation Code Description Data Source(s) Body weight 171.6 [lb_av] 171.6 [lb_av] eCW1 ([facility]) Body weight 77.84 kg 77.84 kg eCW1 ([facility]) Body height [in_i] eCW1 ([facility]) Body mass index (BMI) [Ratio] 29.45 kg/m2 29.45 kg/m2 W1 ([facility]) Systolic blood pressure 124 mm[Hg] 124 mm[Hg] e CW1 ([facility]) Diastolic blood pressure 83 mm[Hg] 83 mm[Hg] eCW1 ([facility]) Diastolic blood pressure 95 mm[Hg] 95 mm[Hg] MEDENT ([facility]) Heart rate 82 /min 82 /min MEDENT ([facility] Body weight 165.00 [lb_av] 165.00 [lb_av] MEDEN T ([facility]) Systolic blood pressure 141 mm[Hg] 141 mm[Hg] M EDENT ([facility]) Systolic blood pressure 134 mm[Hg] 134 mm[Hg] M EDENT ([facility]) Body weight 167.00 [lb_av] 167.00 [lb_av] MEDEN T ([facility]) Body height 64 [in_i] 64 [in_i] [facility] Body mass index (BMI) [Ratio] 28.7 kg/m2 28.7 k g/m2 [facility] ([facility], [facility]) Diastolic blood pressure 82 mm[Hg] 82 mm[Hg] [facility] ([facility], [facility]) Heart rate 87 /min 87 /min [facility] ([facility], [facility]) Respiratory rate 18 /min 18 /min [facility] ( [facility], [facility]) Oxygen saturation in Arterial blood by Pulse oximetry 98 % 98 % [facility] ([facility], [facility]) Body temperature 98.6 [degF] 98.6 [degF] [facility] ([facility], [facility]) Systolic blood pressure 132 mm[Hg] 132 mm[Hg] [facility] Diastolic blood pressure 87 mm[Hg] 87 mm[Hg] [facility] ([facility]) Heart rate 86 /min 86 /min [facility] ([facility]) Body weight 168.00 [lb_av] 168.00 [lb_av] MEDEN T ([facility]) Heart rate 70 /min 70 /min [facility] ([facility]) Respiratory rate 18 /min 18 /min [facility] ( [facility]) Body temperature 98.2 [degF] 98.2 [degF] [facility] ([facility]) Oxygen saturation in Arterial blood by Pulse oximetry 99 % 99 % [facility] ([facility]) [place] body weight 115 [lb_av] 115 [lb_av] MEDEN T ([facility]) Systolic blood pressure 126 mm[Hg] 126 mm[Hg] M EDENT ([facility]) Diastolic blood pressure 74 mm[Hg] 74 mm[Hg] [facility] ([facility]) Body height 63.5 [in_i] 63.5 [in_i] [facility] ([facility]) 5'3.50" Systolic blood pressure 132 mm[Hg] 132 mm[Hg] [facility] Diastolic blood pressure 72 mm[Hg] 72 mm[Hg] [facility] ([facility]) Body height 63.5 [in_i] 63.5 [in_i] MEDENT ([facility]) 5'3.50" Body weight 175.00 [lb_av] 175.00 [lb_av] [...] 97 % MEDENT ([facility]) [place] body weight 115 [lb_av] 115 [lb_av] MEDEN T ([facility]) Diastolic blood pressure 75 mm[Hg] 75 mm[Hg] MEDENT ([facility]) Systolic blood pressure 126 mm[Hg] 126 mm[Hg] M EDENT ([facility]) Respiratory rate 18 /min 18 /min MEDENT ( [facility]) Body weight 172.00 [lb_av] 172.00 [lb_av] MEDEN T ([facility]) Heart rate 87 /min 87 /min MEDENT ([facility]) Systolic blood pressure 140 mm[Hg] 140 mm[Hg] M EDENT ([facility]) Diastolic blood pressure 84 mm[Hg] 84 mm[Hg] MEDENT ([facility]) Body height 63.5 [in_i] 63.5 [in_i] MEDENT ([facility]) 5'3.50" Body temperature 98.3 [degF] 98.3 [degF] MEDENT ([facility]) Oxygen saturation in Arterial blood by Pulse oximetry 97 % 97 % MEDENT ([facility]) [place] body weight 115 [lb_av] 115 [lb_av] MEDEN T ([facility]) Body weight 183.00 [lb_av] 183.00 [lb_av] MEDEN T ([facility]) Body mass index (BMI) [Ratio] 31.9 kg/m2 31.9 k g/m2 MEDENT ([facility]) [place] body weight 115 [lb_av] 115 [lb_av] MEDEN T ([facility]) Systolic blood pressure 124 mm[Hg] 124 mm[Hg] M EDENT ([facility]) Body mass index [...] 98 % MEDENT ([facility]) Diastolic blood pressure 78 mm[Hg] 78 mm[Hg] MEDENT ([facility]) Body height 63.5 [in_i] 63.5 [in_i] MEDENT ([facility]) 5'3.50" Body weight 185.00 [lb_av] 185.00 [lb_av] MEDEN T ([facility]) Body height 63.5 [in_i] 63.5 [in_i] MEDENT ([facility]) 5'3.50" Systolic blood pressure 132 mm[Hg] 132 mm[Hg] M EDENT ([facility]) Diastolic blood pressure 86 mm[Hg] 86 mm[Hg] MEDENT ([facility]) Body weight 185.00 [lb_av] 185.00 [lb_av] MEDEN [...] 98 % MEDENT ([facility]) [place] body weight 115 [lb_av] 115 [lb_av] MEDEN T ([facility]) Systolic blood pressure 125 mm[Hg] 125 mm[Hg] M EDENT ([facility]) Diastolic blood pressure 67 mm[Hg] 67 mm[Hg] MEDNIKI ([facility]) Body weight 175.00 [lb_av] 175.00 [lb_av] MEDEN T ([facility]) Body temperature 98.0 [degF] 98.0 [degF] MEDENT ([facility]) Respiratory rate 16 /min 16 /min [facility] ( [facility]) Patient Treatment Plan of Care Planned Activity Planned Date Details Description Data Source (s) Fluorouracil 50 MG/ML Topical Cream 08/21/2021 12:00:00 AM EST eCW1 ([facility]) Dexamethasone 0.001 MG/MG / Neomycin 0.0 035 MG/MG / Polymyxin B 10 UNT/MG Ophthalmic Ointment 01/04/2021 12:00:00 AM NABIL HIGGINBOTHAM (Gavin Molina MD [facility]) Dexamethasone 0.001 MG/MG / Tobramycin 0 .003 MG/MG Ophthalmic Ointment [Tobradex] 12/31/2020 12:00:00 AM NABIL GARCIA (Gavin Molina MD [facility]) Dexamethasone 0.001 MG/MG / Tobramycin 0 .003 MG/MG Ophthalmic Ointment [Tobradex] 03/08/2020 12:00:00 AM NABIL GARCIA (Gavin Molina MD [facility])
[2021-08-28] MEDS ORDERED: ACETAMINOPHEN TAB 650MG DOSE (2X325MG) PO ONE (19:20)
[2021-08-28 19:45] VITALS: BP 156/89
--- NOTE | 2021-08-29 18:55 | ECGEPIP ---
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
--- NOTE | 2021-08-29 18:58 | ECGEPIP ---
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
== END 2021-08-28 20:43 | disposition home or self-care (01) ==
LOC: M ED 15:56
DX: R07.89 Other chest pain (principal); E28.2 Polycystic ovarian syndrome; Z79.899 Other long term (current) drug therapy
CPT/HCPCS: 36415; 71045; 71275; 80048; 80076; 83690; 84484; 85025; 87798; 93005; 93041; 94760; 99285; Q9967

== ENCOUNTER → 2022-01-30 | Outpatient (REF) | payer OTHER ==
[~2022-01-30] MED LIST changes: +BUPR-71; +CEFD300C41; +FLUO1CRE2; +METF-838; +MONT10TA97; +VALA1TAB5; +VYVA30CA4
== END ==
LOC: M LAB REF 15:03
PROVIDERS: ATTEND Physician Assistant
DX: R53.83 Other fatigue (principal); J02.9 Acute pharyngitis, unspecified

== ENCOUNTER 2022-07-16 12:45 | Day surgery (SDC) | payer OTHER ==
[~2022-07-16] VITALS: Ht 162.6 cm; Wt 77.0 kg
[~2022-07-16 12:45] MED LIST changes: +CETI10CA2 PO; +FLUTISP INH; +MELO15TA28 PO; +NS 1,000 ML IV ONE; +SPIR-10 PO
[2022-07-16 14:20] VITALS: BP 162/90
== END 2022-07-16 15:09 | disposition home or self-care (01) ==
LOC: M OPP 12:45
PROVIDERS: ATTEND Surgery
DX: Z12.11 Encounter for screening for malignant neoplasm of colon (principal); F32.9 Major depressive disorder, single episode, unspecified; F41.9 Anxiety disorder, unspecified; J45.909 Unspecified asthma, uncomplicated; E28.2 Polycystic ovarian syndrome; Z85.828 Personal history of other malignant neoplasm of skin; Z79.1 Long term (current) use of non-steroidal anti-inflammatories (NSAID); Z79.51 Long term (current) use of inhaled steroids; Z79.84 Long term (current) use of oral hypoglycemic drugs; Z79.899 Other long term (current) drug therapy

== ENCOUNTER → 2024-06-02 | Outpatient (CLI) | payer OTHER ==
[~2024-06-02] MED LIST changes: +CEFD1CAP9; -CEFD300C41; -NS 1,000 ML IV ONE
[2024-06-02 09:46] LABS: BASO # 0.1 10^3/uL (0.0-0.2); BASO % 1.3 % (0.0-1.0); EOS # 0.1 10^3/uL (0.0-0.5); EOS % 2.5 % (0.0-3.0); HEMATOCRIT 44.7 % (36.0-47.0); HEMOGLOBIN 14.7 g/dl (12.0-15.5); LYMPH % 38.9 % (24.0-44.0); MEAN CORPUSCULAR HEMOGLOBIN 30.5 pg (27.0-33.0); MEAN CORPUSCULAR HGB CONC 32.9 g/dl (32.0-36.5); MEAN CORPUSCULAR VOLUME 92.7 fl (80.0-96.0); MONO # 0.4 10^3/uL (0.0-0.8); MONO % 6.7 % (2.0-8.0); NEUTROPHILS # 2.6 10^3/uL (1.5-8.5); NEUTROPHILS % 50.4 % (36.0-66.0); PLATELET COUNT, AUTOMATED 284 10^3/uL (150-450); RED BLOOD COUNT 4.82 10^6/uL (4.00-5.40); WHITE BLOOD COUNT 5.2 10^3/uL (4.0-10.0)
[2024-06-02 10:01] LABS: HEMOGLOBIN A1c 4.6 % (4.0-6.0)
[2024-06-02 10:21] LABS: ALBUMIN 4.2 G/DL (3.2-5.2); ALKALINE PHOSPHATASE 77 U/L (46-116); ALT/SGPT 11 U/L (7.0-40); AST/SGOT 13 U/L (<34); BILIRUBIN,TOTAL 0.6 MG/DL (0.3-1.2); BLOOD UREA NITROGEN 10 MG/DL (9-23); CALCIUM LEVEL 9.8 MG/DL (8.5-10.1); CARBON DIOXIDE LEVEL 30 MMOL/L (20-31); CHLORIDE LEVEL 104 MMOL/L (98-107); CHOLESTEROL LEVEL 271 MG/DL (<200); CHOLESTEROL RISK RATIO 3.03 (<5); CREATININE FOR GFR 0.71 MG/DL (0.55-1.30); GLOMERULAR FILTRATION RATE > 60.0 (>51); GLUCOSE, FASTING 71 MG/DL (60-100); HDL CHOLESTEROL 89.3 MG/DL (>40); LDL CHOLESTEROL 163.1 MG/DL (<100); NON-HDL-C 181.7 MG/DL; POTASSIUM SERUM 4.3 MMOL/L (3.5-5.1); SODIUM LEVEL 138 MMOL/L (136-145); TOTAL PROTEIN 7.8 G/DL (5.7-8.2); TRIGLYCERIDES LEVEL 93 MG/DL (<150)
[2024-06-02 10:30] LABS: THYROID STIMULATING HORMONE 1.499 uIU/ML (0.55-4.78)
[2024-06-02 10:32] LABS: FREE T4 1.36 NG/DL (0.89-1.76)
== END ==
LOC: M LAB 08:58
PROVIDERS: ATTEND Physician Assistant
DX: E78.2 Mixed hyperlipidemia (principal); Z13.29 Encounter for screening for other suspected endocrine disorder